=== PATIENT | male | born 1970 | race Caucasian/White ===

== ENCOUNTER 2017-02-05 00:22 | Inpatient (IN) | payer OTHER, MEDICAID ==
[~2017-02-05] VITALS: Ht 182.9 cm; Wt 78.0 kg
[2017-02-05] VITALS (21 sets, daily range): BP systolic 92–129; BP diastolic 44–71; PULSE 80–134; RESP 26; TEMP 97–100; O2SAT 82–100
[~2017-02-05 00:22] MED LIST: ARIP1TAB13 PO
[2017-02-05] MEDS ORDERED: ceFAZolin 2 GM PREMIX 50 ML ONE (00:27)
[2017-02-05] MEDS ORDERED: PROPOFOL 1000 MG/100 ML INJ 100 ML ONE (00:27)
[2017-02-05 00:43] LABS: AUTOMATED NEUTROPHIL # 4.6 TH/MM3 (1.8-7.7); BASOPHIL # 0.1 TH/MM3 (0-0.2); BASOPHIL % 0.7 % (0.0-2.0); EOSINOPHIL # 0.2 TH/MM3 (0-0.4); EOSINOPHIL % 1.7 % (0.0-4.0); HEMATOCRIT 42.1 % (39.0-51.0); LYMPH % 49.3 % (9.0-44.0); LYMPHOCYTE # 5.7 TH/MM3 (1.0-4.8); MEAN CELL VOLUME 103.1 FL (80.0-100.0); MEAN CORPUSCULAR HEMOGLOBIN 35.8 PG (27.0-34.0); MEAN CORPUSCULAR HGB CONC 34.8 % (32.0-36.0); MONO % 8.8 % (0.0-8.0); NEUT % 39.5 % (16.0-70.0); PLATELET COUNT 189 TH/MM3 (150-450); RED BLOOD COUNT 4.09 MIL/MM3 (4.50-5.90); RED CELL DISTRIBUTION WIDTH 14.8 % (11.6-17.2); WHITE BLOOD COUNT 11.6 TH/MM3 (4.0-11.0)
[2017-02-05 00:44] LABS: HEMO FLAGS AUTO DIFF
[2017-02-05] MEDS ORDERED: SODIUM CHLORIDE 0.9% FLUSH 5 ML FLUSH IVF PRN (00:45)
[2017-02-05] MEDS ORDERED: Post-op Orders (for Pharmacy) MISC XX ONE (00:45)
[2017-02-05] MEDS ORDERED: NALOXONE HCL 0.4 MG/ML AMP IV PRN (00:45)
[2017-02-05 00:47] LABS: I-STAT POTASSIUM 3.6 MMOL/L (3.5-4.9)
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
[2017-02-05 00:56] LABS: APTT (PATIENT) 26.9 SEC (24.3-30.1); INTERNATIONAL NORMALIZED RATIO 0.9 RATIO; PROTHROMBIN TIME - PATIENT 10.3 SEC (9.8-11.6)
[2017-02-05] MEDS ORDERED: 3% SALINE INJ 500 ML IV PRN (01:00)
[2017-02-05] MEDS ORDERED: IOHEXOL 350 MG/ML 10 ML VIAL (for RAD DIAG) IV ONE ×2 (01:07→12:09)
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
[2017-02-05 01:25] LABS: MYELOCYTES 2 % (0-0); POLYS (SEG NEUTROPHILS) 41 % (16-70); WBC DIFF SAMPLE 100
[2017-02-05 01:26] LABS: PLATELET ESTIMATE SMEAR NORMAL (NORMAL); PLATELET MORPHOLOGY NORMAL (NORMAL); SCAN/DIFF FINAL DIFF MANUAL
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
[2017-02-05 01:44] LABS: BLOOD GAS BASE EXCESS -8.5 mmol/L (-2-2); BLOOD GAS CARBOXYHEMOGLOBIN 6.3 % (0-4); BLOOD GAS HCO3 20 mmol/L (22-26); BLOOD GAS O2 HGB SATURATION 92 % (90-100); BLOOD GAS OXYGEN CONTENT 18.3 Vol % (12.0-20.0); BLOOD GAS PCO2 68 mmHg (38-42); BLOOD GAS PO2 240 mmHg (61-120); BLOOD GAS TOTAL HGB 13.9 G/DL (12.0-16.0); TEMP CORR TO 98.6
[2017-02-05 01:46] LABS: CRITICAL VALUE YES; OXYGEN DEVICE VENTILATOR
[2017-02-05 01:48] LABS: DRAW SITE RT RADIAL; FIO2 100 %; NUMBER OF ARTERIAL PUNCTURES 1; STAT NO; ULNAR PULSE PRESENT
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
[2017-02-05] MEDS ORDERED: SODIUM BICARBONATE 8.4% INJ 50 ML ONE (03:06)
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
[2017-02-05] MEDS ORDERED: SODIUM BICARBONATE 8.4% SOLN 50 MEQ/50 ML VIAL IVS ONE (03:20)
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
[2017-02-05] MEDS ORDERED: fentaNYL DRIP 250 ML IV SCH (04:30)
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
[2017-02-05] MEDS: fentaNYL 2,500 MCG/NS 250 ML IV SCH ×2 (04:58→13:58)
[2017-02-05] MEDS: SODIUM CHLOR 0.9% 1000 ML INJ 1,000 ML IV SCH ×3 (04:58→20:36)
[2017-02-05] MEDS: levETIRAcetam INJ 500 MG in SODIUM CHLORIDE 0.9% INJ 100 ML IV SCH ×2 (05:37→13:00)
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
[2017-02-05] MEDS ORDERED: ceFAZolin 2 GM PREMIX 50 ML IV SCH (06:00)
[2017-02-05 06:40] LABS: BLOOD GAS BASE EXCESS -6.5 mmol/L (-2-2); BLOOD GAS CARBOXYHEMOGLOBIN 1.2 % (0-4); BLOOD GAS HCO3 19 mmol/L (22-26); BLOOD GAS METHEMOGLOBIN 1.3 % (0-2); BLOOD GAS O2 HGB SATURATION 97 % (90-100); BLOOD GAS OXYGEN CONTENT 16.8 Vol % (12.0-20.0); BLOOD GAS PCO2 39 mmHg (38-42); BLOOD GAS PO2 238 mmHg (61-120); CRITICAL VALUE NO; OXYGEN DEVICE VENTILATOR; TEMP CORR TO 98.6; VENT SETTINGS PRVC26/550/1.0/+5
[2017-02-05 06:41] LABS: DRAW SITE ALINE; FIO2 85 %; STAT NO; ULNAR PULSE PRESENT
[2017-02-05] MEDS ORDERED: ETOMIDATE 40 MG/20 ML VIAL ONE (06:57)
[2017-02-05] MEDS ORDERED: SUCCINYLCHOLINE CHLORIDE 200 MG/10 ML VIAL ONE (06:59)
[2017-02-05] MEDS: ceFAZolin 2 GM PREMIX 50 ML IV SCH ×3 (07:54→23:45)
[2017-02-05] MEDS: PANTOPRAZOLE SODIUM 40 MG VIAL IV SCH (07:54)
[2017-02-05] MEDS: PROPOFOL 1000 MG/100 ML INJ 100 ML IV SCH ×4 (07:55→19:38)
[2017-02-05] MEDS: SODIUM CHLORIDE 0.9% FLUSH 5 ML FLUSH IVF SCH ×2 (07:55→20:36)
[2017-02-05] MEDS ORDERED: RISP2TAB2 PO (07:58)
[2017-02-05] MEDS ORDERED: SODIUM BICARBONATE 8.4% INJ 50 MEQ/50 ML SYR IV ONE (08:00)
[2017-02-05] MEDS ORDERED: SODIUM PHOSPHATE INJ 30 MMOL in SODIUM CHLOR 0.9% 250 ML INJ 240 ML IV PRN (08:15)
[2017-02-05] MEDS ORDERED: MAGNESIUM SULFATE INJ 2 GM in SODIUM CHLORIDE 0.9% INJ 96 ML IV PRN (08:15)
[2017-02-05] MEDS ORDERED: POTASSIUM PHOSPHATE MONOBASIC 500 MG TAB PO/TUBE PRN (08:15)
[2017-02-05] MEDS ORDERED: MAGNESIUM SULFATE INJ 4 GM in SODIUM CHLORIDE 0.9% INJ 92 ML IV PRN (08:15)
[2017-02-05] MEDS ORDERED: POTASSIUM CHLOR 20 MEQ PREMIX 100 ML IV PRN ×2 (08:15)
[2017-02-05] MEDS ORDERED: POTASSIUM PHOSPHATE MONOBASIC 500 MG TAB PO PRN (08:15)
[2017-02-05] MEDS ORDERED: MAGNESIUM OXIDE 400 MG TAB PO PRN (08:15)
[2017-02-05] MEDS: DOCUSATE SODIUM 50 MG/SENNA 8.6 MG TAB PO SCH ×2 (09:00→20:37)
[2017-02-05] MEDS: LACTULOSE SYRUP 20 GM/30 ML CUP PO SCH (09:00)
[2017-02-05] MEDS ORDERED: RESP: ALBUTEROL 2.5 MG/IPRATROPIUM 0.5 MG NEB (PRN) NEB (09:00)
[2017-02-05] MEDS ORDERED: NOREPINEPHRINE 4 MG/4 ML AMP ONE (10:07)
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
--- NOTE | 2017-02-05 10:28 | PD.PROCEDR ---
Procedure Note Procedure DX: Traumatic Brain Injury OP: Insertion Central Line (01210) Procedure: Right chest prepped and draped. Right subclavian vein cannulated and wire easily advanced. Catheter passed over wire to 18 cm. Lumens aspirated and flushed. Dressing applied. CXR ordered, will review. Burke Bright MD Feb 05, 2017 10:28
--- NOTE | 2017-02-05 10:44 | RADRPT ---
EXAM DATE/TIME: 02/05/2017 10:10 [facility] COMPARISON: CHEST SINGLE AP, February 05, 2017, 0:21. INDICATIONS : Post central line placement. MEDICAL HISTORY : Unobtainable SURGICAL HISTORY : Unobtainable ENCOUNTER: Subsequent ACUITY: 2 days PAIN SCORE: Non-responsive. LOCATION: Bilateral chest FINDINGS: ET tube and NG tube are well placed. There is a right subclavian line in place with the tip overlying the SVC. The heart size is normal. There is linear density seen at the medial left base. Some emphys ematous change management manager the right apex. A pneumothorax is not seen. CONCLUSION: 1. Right subclavian line in good position. 2. Focal emphysematous change management manager the right apex. A pneumothorax is not seen. 3. Linear atelectasis or consolidation at the medial left base. Chinmay Rodgers MD on February 05, 2017 at 10:41 Board Certified Radiologist. This report was verified electronically.
[2017-02-05] MEDS ORDERED: SODIUM CHLOR 0.9% 1000 ML INJ 1,000 ML IV ONE (11:45)
[2017-02-05] MEDS ORDERED: NOREPINEPHRINE INJ 4 MG in SODIUM CHLOR 0.9% 250 ML INJ 250 ML IV SCH (11:45)
[2017-02-05 12:30] LABS: CKMB 26.7 NG/ML (0.5-3.6)
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
--- NOTE | 2017-02-05 15:41 | EC ---
Study Study Date:02/05/2017 STUDY CONCLUSIONS SUMMARY - Left ventricle: The cavity size was normal. Wall thickness was normal. Systolic function was severely reduced. The estimated ejection fraction was in the range of 20% to 25%. Diffuse hypokinesis. - Pericardium, extracardiac: A trivial pericardial effusion was identified. If LV function is below 40, please consider prescribing an ACEI or ARB or document rationale for non-use. PROCEDURE DATA STUDY STATUS: Elective. Procedure: Transthoracic echocardiography. Image quality was good. Scanning was performed from the parasternal, apical, and subcostal acoustic windows. Study completion: The patient tolerated the procedure well. Transthoracic echocardiography. M-mode, complete 2D, complete spectral Doppler, and color Doppler. Patient status: Inpatient. CARDIAC ANATOMY LEFT VENTRICLE: The cavity size was normal. Wall thickness was normal. Systolic function was severely reduced. The estimated ejection fraction was in the range of 20% to 25%. Diffuse hypokinesis. AORTIC VALVE: Trileaflet; normal thickness leaflets. Doppler: Transvalvular velocity was within the normal range. There was no stenosis. No regurgitation. Peak gradient: 12mm Hg (S). AORTA: Aortic root: The aortic root was normal in size. MITRAL VALVE: Structurally normal valve. Doppler: Transvalvular velocity was within the normal range. There was no evidence for stenosis. No regurgitation. Peak gradient: 3mm Hg (D). LEFT ATRIUM: The atrium was normal in size. RIGHT VENTRICLE: The cavity size was normal. Wall thickness was normal. PULMONIC VALVE: Doppler: Transvalvular velocity was within the normal range. There was no evidence for stenosis. No regurgitation. TRICUSPID VALVE: Structurally normal valve. Doppler: Transvalvular velocity was within the normal range. Trace regurgitation. PULMONARY ARTERY: The main pulmonary artery was normal-sized. Systolic pressure was within the normal range. RIGHT ATRIUM: The atrium was normal in size. PERICARDIUM: A trivial pericardial effusion was identified. SYSTEMIC VEINS: Inferior vena cava: The vessel was normal in size. BASIC MEASUREMENTS ADULT Normal Left ventricle LV internal dimension, ED, chordal level, *52.9 mm 43-52 PLAX LV internal dimension, ES, chordal level, *47.2 mm 23-38 PLAX Fractional shortening, chordal level, PLAX *11 % >29 LV posterior wall thickness, ED 8.94 mm IVS/LVPW ratio, ED 1.22 <1.3 Ventricular septum Septal thickness, ED 10.9 mm Left atrium Anterior-posterior dimension 35 mm Right ventricle RV internal dimension, ED, PLAX *18.6 mm 19-38 DOPPLER MEASUREMENTS ADULT Normal Main pulmonary artery Pressure, S 21 mm Hg =30 Aortic valve Peak velocity, S 175 cm/s Peak gradient, S 12 mm Hg Mitral valve Peak E-wave velocity 86.2 cm/s Peak A-wave velocity 77.9 cm/s Peak gradient, D 3 mm Hg Peak E/A ratio 1.1 Tricuspid valve Regurgitant peak velocity 195 cm/s Peak RV-RA gradient, S 15 mm Hg Maximal regurgitant velocity 195 cm/s Systemic veins Estimated CVP 5 mm Hg Right ventricle RV pressure, S 21 mm Hg <30 LEGEND: Mean values are shown as u=mean value. Asterisk (*) alexis values outside specified normal range. Prepared and signed by Teja Stewart [id number]
--- NOTE | 2017-02-05 15:59 | RADRPT ---
EXAM DATE/TIME: 02/05/2017 15:31 CORRECTION Corrected on: February 05, 2017; [facility] COMPARISON: No previous studies available for comparison. INDICATIONS : Pain in lower left leg. MEDICAL HISTORY : None. SURGICAL HISTORY : None. ENCOUNTER: Initial ACUITY: 1 day PAIN SCORE: Non-responsive. LOCATION: Left lower leg FINDINGS: There is a comminuted and mildly impacted but otherwise essentially nondisplaced fracture of the fibu lar neck. There is an oblique versus spiral fracture in the distal shaft region of the fibula, minimally displa kelli CONCLUSION: Fractures both proximally and distally of the left fibula as above. Chinmay Marie MD on February 05, 2017 at 15:56 Board Certified Radiologist. This report was verified electronically. Chinmay Marie MD on February 05, 2017 at 16:01 Board Certified Radiologist. This report was verified electronically.
--- NOTE | 2017-02-05 16:04 | RADRPT ---
EXAM DATE/TIME: 02/05/2017 15:44 [facility] COMPARISON: No previous studies available for comparison. INDICATIONS : Pain in lower left leg. MEDICAL HISTORY : None. SURGICAL HISTORY : None. ENCOUNTER: Initial ACUITY: 1 day PAIN SCORE: Non-responsive. LOCATION: Left lower leg FINDINGS: Minimally displaced oblique fracture seen in the distal shaft region of the left fibula. It is best s een on the lateral view. There is lateral soft tissue swelling. Distal tibia appears intact. CONCLUSION: Minimally displaced oblique fracture of the distal fibula. Chinmay Marie MD on February 05, 2017 at 16:02 Board Certified Radiologist. This report was verified electronically.
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
--- NOTE | 2017-02-05 19:14 | EKG ---
Date Performed: 02/05/2017 Time Performed: 01:20:00 PTAGE: 89 years EKG: Sinus tachycardia. Left bundle branch block Borderline left axis deviation. There maybe ST elevation seen in leads v2,v3 and AVF. Because of heart rate, it is hard to determine if this is acut e injury pattern on top of a left bundle branch block. There maybe J-point elevation anteriorly, but with rate and left bundle branch block, this is difficult to determine if this is injury pattern or n ot. No prior tracing is available. Clinical correlation and follow up tracing is strongly recommend ed. Abnormal ECG NO PREVIOUS TRACING DOCTOR: Benton Dahl Interpretating Date/Time 02/05/2017 19:13:51
[2017-02-05 20:35] LABS: BICARBONATE 28.6 MEQ/L (21.0-32.0); MAGNESIUM 1.7 MG/DL (1.5-2.5); POTASSIUM 3.7 MEQ/L (3.5-5.1)
[2017-02-05] MEDS: CHLORHEXIDINE 0.12% (ORAL KIT) 15 ML CUP MT SCH (20:36)
[2017-02-05 21:09] LABS: CALCIUM-PROTEIN CORRECTED 7.8 MG/DL (8.5-10.1); CKMB 23.2 NG/ML (0.5-3.6)
[2017-02-05] MEDS: NOREPINEPHRINE INJ 4 MG in SODIUM CHLOR 0.9% 250 ML INJ 250 ML IV SCH (21:23)
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
[2017-02-06] VITALS (17 sets, daily range): BP systolic 108–136; BP diastolic 51–58; PULSE 87–114; RESP 26; TEMP 99.3–100.8; O2SAT 97–100
[2017-02-06] MEDS: levETIRAcetam INJ 500 MG in SODIUM CHLORIDE 0.9% INJ 100 ML IV SCH ×3 (01:28→23:47)
[2017-02-06] MEDS: PROPOFOL 1000 MG/100 ML INJ 100 ML IV SCH ×4 (01:33→23:48)
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
[2017-02-06 03:46] LABS: AMPHETAMINE, URINE NEG (NEG); BARBITURATES, URINE NEG (NEG); COCAINE, URINE NEG (NEG)
[2017-02-06 03:48] LABS: BACTERIA, URINE RARE /hpf; BLOOD, URINE MOD (NEG); GLUCOSE,URINE NEG (NEG); KETONE, URINE 40 mg/dL (NEG); MUCUS URINE MANY /lpf (OCC); NITRITE,URINE NEG (NEG); SQUAMOUS EPITHELIAL CELL URINE 1 /hpf (0-5); URINE COLOR YELLOW (YELLW/STRAW)
[2017-02-06 03:49] LABS: COMMENT (UR) CATH-CULTURE IND; CULTURE IF INDICATED CATH CULTURE IND
[2017-02-06] MEDS: NOREPINEPHRINE INJ 4 MG in SODIUM CHLOR 0.9% 250 ML INJ 250 ML IV SCH ×2 (04:18→16:14)
[2017-02-06 04:41] LABS: CKMB 16.6 NG/ML (0.5-3.6)
[2017-02-06] MEDS: fentaNYL 2,500 MCG/NS 250 ML IV SCH ×2 (05:08→22:38)
[2017-02-06 05:15] LABS: AUTOMATED NEUTROPHIL # 11.7 TH/MM3 (1.8-7.7); BASOPHIL % 0.3 % (0.0-2.0); EOSINOPHIL # 0.2 TH/MM3 (0-0.4); EOSINOPHIL % 1.3 % (0.0-4.0); HEMATOCRIT 30.3 % (39.0-51.0); HEMO FLAGS DIFF FINAL; LYMPHOCYTE # 0.5 TH/MM3 (1.0-4.8); MEAN CELL VOLUME 103.6 FL (80.0-100.0); MEAN CORPUSCULAR HEMOGLOBIN 35.8 PG (27.0-34.0); MEAN CORPUSCULAR HGB CONC 34.6 % (32.0-36.0); MONO % 6.5 % (0.0-8.0); NEUT % 87.9 % (16.0-70.0); PLATELET COUNT 106 TH/MM3 (150-450); RED BLOOD COUNT 2.92 MIL/MM3 (4.50-5.90); RED CELL DISTRIBUTION WIDTH 14.9 % (11.6-17.2); WHITE BLOOD COUNT 13.3 TH/MM3 (4.0-11.0)
[2017-02-06 05:41] LABS: BLOOD GAS BASE EXCESS 0.9 mmol/L (-2-2); BLOOD GAS CARBOXYHEMOGLOBIN 1.1 % (0-4); BLOOD GAS HCO3 26 mmol/L (22-26); BLOOD GAS METHEMOGLOBIN 1.1 % (0-2); BLOOD GAS O2 HGB SATURATION 94 % (90-100); BLOOD GAS OXYGEN CONTENT 13.9 Vol % (12.0-20.0); BLOOD GAS PCO2 48 mmHg (38-42); BLOOD GAS PO2 82 mmHg (61-120); BLOOD GAS TOTAL HGB 10.5 G/DL (12.0-16.0); CRITICAL VALUE NO; OXYGEN DEVICE VENTILATOR; TEMP CORR TO 98.6
[2017-02-06 05:42] LABS: DRAW SITE ALINE; FIO2 40 %; STAT NO
--- NOTE | 2017-02-06 05:59 | RADRPT ---
EXAM DATE/TIME: 02/06/2017 04:25 [facility] COMPARISON: CHEST SINGLE AP, February 05, 2017, 10:10. INDICATIONS : Shortness of breath. MEDICAL HISTORY : Smoker. SURGICAL HISTORY : None. ENCOUNTER: Subsequent ACUITY: 2 days PAIN SCORE: Non-responsive. LOCATION: Bilateral chest FINDINGS: Single AP view of the chest. Endotracheal tube tip is at the thoracic inlet. Right subclavian central venous catheter unchanged. Nasogastric tube remains in place with its side-port in the distal esopha rocky. Mild patchy opacity at the left lung base unchanged. The lungs are otherwise clear. Cardiomedias tinal silhouette within normal limits. No evidence of pleural effusion or pneumothorax. CONCLUSION: 1. No change in mild patchy left lung base opacity likely representing atelectasis. 2. Endotracheal tube tip is at the thoracic inlet and could be advanced several centimeters. 3. Nasogastric tube side port is in the distal esophagus and could be advanced 10 cm. Arnie Lozada MD on February 06, 2017 at 5:56 Board Certified Radiologist. This report was verified electronically.
[2017-02-06 06:02] LABS: INDIRECT BILIRUBIN 0.2 MG/DL (0.0-0.8); POTASSIUM 3.7 MEQ/L (3.5-5.1); TOTAL BILIRUBIN ADULT 0.3 MG/DL (0.2-1.0)
[2017-02-06] MEDS: CHLORHEXIDINE 0.12% (ORAL KIT) 15 ML CUP MT SCH ×2 (08:00→20:30)
[2017-02-06] MEDS: SODIUM CHLOR 0.9% 1000 ML INJ 1,000 ML IV SCH (08:03)
[2017-02-06] MEDS: SODIUM CHLORIDE 0.9% FLUSH 5 ML FLUSH IVF SCH ×2 (08:03→20:31)
[2017-02-06] MEDS: ceFAZolin 2 GM PREMIX 50 ML IV SCH ×3 (08:03→23:47)
[2017-02-06] MEDS: LACTULOSE SYRUP 20 GM/30 ML CUP PO SCH (08:03)
[2017-02-06] MEDS: PANTOPRAZOLE SODIUM 40 MG VIAL IV SCH (08:03)
[2017-02-06] MEDS: DOCUSATE SODIUM 50 MG/SENNA 8.6 MG TAB PO SCH ×2 (08:04→20:31)
[2017-02-06] MEDS: MULTIVITAMIN INJ 10 ML, THIAMINE INJ 100 MG, FOLIC ACID INJ 1 MG in SODIUM CHLORID 0.9%... IV SCH (09:00)
--- NOTE | 2017-02-06 09:46 | PD.CARD.PN ---
Subjective Subjective Remarks Remains intubated not responding to me Objective Medications Administered Medications Medications (Trade) Dose Ordered Sig/Familia Route PRN Reason Start Time Stop Time Status Last Admin Dose Admin Sodium Chloride (NS 1000 ml Inj) 1,000 ml @ 70 mls/hr [id number] IV 02/05/17 00:44 02/06/17 08:03 IV Flush (NS Flush) 2 ml BID IVF 02/05/17 09:00 02/06/17 08:03 Pantoprazole Sodium 40 mg 40 mg Q24H IV 02/05/17 09:00 02/06/17 08:03 Propofol 100 ml @ 0 mls/hr TITRATE IV 02/05/17 01:00 02/06/17 05:07 Levetriacetam 500 mg/Sodium Chloride 105 ml @ 420 mls/hr Q12H IV 02/05/17 01:00 02/06/17 01:28 Fentanyl Citrate 250 ml @ 0 mls/hr TITRATE IV 02/05/17 04:30 02/06/17 05:08 Cefazolin Sodium/ Dextrose (Ancef 2 Gm Premix) 50 ml @ 100 mls/hr Q8H IV 02/05/17 08:00 02/06/17 08:03 Senna/Docusate Sodium (Rae-Colace) 1 tab BID PO 02/05/17 09:00 02/05/17 20:37 Chlorhexidine Gluconate 15 ml 15 ml BID@08,20 MT 02/05/17 20:00 02/06/17 08:00 Norepinephrine Bitartrate/Sodium Chloride (Levophed Inj/NS 250 ml Inj) 254 ml @ 0 mls/hr TITRATE IV 02/05/17 21:30 02/06/17 04:18 Vital Signs / I&O Vital Signs Date Time Temp Pulse Resp B/P Pulse Ox O2 Delivery O2 Flow Rate FiO2 02/06/17 08:54 100 40 02/06/17 08:00 40 02/06/17 08:00 100.4 99 26 128/57 99 02/06/17 08:00 91 02/06/17 07:00 Mechanical Ventilator 50 02/06/17 06:00 99 02/06/17 04:00 100.0 100 26 136/52 97 02/06/17 04:00 100 02/06/17 04:00 40 02/06/17 03:34 100 50 02/06/17 02:00 90 02/06/17 00:00 99.9 94 26 129/51 100 02/06/17 00:00 94 02/06/17 00:00 50 02/05/17 22:00 86 02/05/17 20:00 100.0 90 26 129/56 100 02/05/17 20:00 94 02/05/17 20:00 50 02/05/17 19:00 Mechanical Ventilator 100 02/05/17 18:00 89 02/05/17 17:00 100 50 02/05/17 16:00 50 02/05/17 16:00 82 02/05/17 16:00 99.7 82 26 106/48 100 02/05/17 15:57 100 60 02/05/17 14:00 88 02/05/17 12:00 85 02/05/17 12:00 85 02/05/17 12:00 99.1 85 26 115/49 100 02/05/17 11:50 99 50 02/05/17 11:37 100 85 02/05/17 10:00 80 I/O 02/05/17 02/05/17 02/05/17 02/06/17 02/06/17 02/06/17 06:59 14:59 22:59 06:59 14:59 22:59 Intake Total 1247 ml 1975 ml 1506 ml 873 ml Output Total 1200 ml 1050 ml 1000 ml 450 ml Balance 47 ml 925 ml 506 ml 423 ml Intake IV Total 1247 ml 1975 ml 1506 ml 873 ml Output Urine Total 800 ml 850 ml 1000 ml 450 ml Gastric Drainage Total 400 ml 200 ml 0 ml # Bowel Movements 0 0 Physical Exam GENERAL: Intubated, sedated, multiple abrasions CARDIOVASCULAR: Regular rate and rhythm without murmurs, gallops, or rubs. RESPIRATORY: vent sounds appreciated GASTROINTESTINAL: Abdomen soft, non-tender, nondistended. Normal active bowel sounds MUSCULOSKELETAL: Extremities without clubbing, cyanosis, or edema. NEURO: intubated, sedated Laboratory Laboratory Tests Test 02/05/17 02/05/17 02/05/17 02/06/17 11:10 17:45 19:43 03:15 Total Creatine Kinase 3087 U/L 3687 U/L 3576 U/L Creatine Kinase MB 26.7 NG/ML 23.2 NG/ML 16.6 NG/ML Creatine Kinase MB % 0.9 % 0.6 % 0.5 % Troponin I 0.73 NG/ML 0.30 NG/ML 0.15 NG/ML Nasal Screen MRSA (PCR) NEGATIVE Sodium Level 149 MEQ/L Potassium Level 3.7 MEQ/L Chloride Level 113 MEQ/L Carbon Dioxide Level 28.6 MEQ/L Anion Gap 7 MEQ/L Blood Urea Nitrogen 9 MG/DL Creatinine 0.71 MG/DL Estimat Glomerular Filtration 119 ML/MIN Rate Random Glucose 108 MG/DL Calcium Level 6.7 MG/DL Protein Corrected Calcium 7.8 MG/DL Phosphorus Level 2.9 MG/DL Magnesium Level 1.7 MG/DL Total Protein 4.9 GM/DL Urine Color YELLOW Urine Turbidity HAZY Urine pH 5.0 Urine Specific [place] 1.017 Urine Protein TRACE mg/dL Urine Glucose (UA) NEG mg/dL Urine Ketones 40 mg/dL Urine Occult Blood MOD Urine Nitrite NEG Urine Bilirubin NEG Urine Urobilinogen LESS THAN 2.0 MG/DL Urine Leukocyte Esterase NEG Urine RBC 10 /hpf Urine WBC 9 /hpf Urine Squamous Epithelial 1 /hpf Cells Urine Amorphous Sediment RARE Urine Bacteria RARE /hpf Urine Mucus MANY /lpf Microscopic Urinalysis Comment CATH-CULTURE IND Urine Opiates Screen NEG Urine Barbiturates Screen NEG Urine Amphetamines Screen NEG Urine Benzodiazepines Screen NEG Urine Cocaine Screen NEG Urine Cannabinoids Screen NEG Test 02/06/17 02/06/17 05:00 05:32 White Blood Count 13.3 TH/MM3 Red Blood Count 2.92 MIL/MM3 Hemoglobin 10.5 GM/DL Hematocrit 30.3 % Mean Corpuscular Volume 103.6 FL Mean Corpuscular Hemoglobin 35.8 PG Mean Corpuscular Hemoglobin 34.6 % Concent Red Cell Distribution Width 14.9 % Platelet Count 106 TH/MM3 Mean Platelet Volume 7.9 FL Neutrophils (%) (Auto) 87.9 % Lymphocytes (%) (Auto) 4.0 % Monocytes (%) (Auto) 6.5 % Eosinophils (%) (Auto) 1.3 % Basophils (%) (Auto) 0.3 % Neutrophils # (Auto) 11.7 TH/MM3 Lymphocytes # (Auto) 0.5 TH/MM3 Monocytes # (Auto) 0.9 TH/MM3 Eosinophils # (Auto) 0.2 TH/MM3 Basophils # (Auto) 0.0 TH/MM3 CBC Comment DIFF FINAL Differential Comment Sodium Level 148 MEQ/L Potassium Level 3.7 MEQ/L Chloride Level 113 MEQ/L Carbon Dioxide Level 29.0 MEQ/L Anion Gap 6 MEQ/L Blood Urea Nitrogen 7 MG/DL Creatinine 0.67 MG/DL Estimat Glomerular Filtration 128 ML/MIN Rate Random Glucose 112 MG/DL Calcium Level 7.0 MG/DL Protein Corrected Calcium 8.0 MG/DL Total Bilirubin 0.3 MG/DL Direct Bilirubin 0.1 MG/DL Indirect Bilirubin 0.2 MG/DL Aspartate Amino Transf 136 U/L (AST/SGOT) Alanine Aminotransferase 102 U/L (ALT/SGPT) Alkaline Phosphatase 53 U/L Total Protein 5.2 GM/DL Albumin 2.5 GM/DL Blood Gas Puncture Site [facility] Blood Gas Patient Temperature 98.6 Blood Gas HCO3 26 mmol/L Blood Gas Base Excess 0.9 mmol/L Blood Gas Oxygen Saturation 94 % Arterial Blood pH 7.35 Arterial Blood Partial 48 mmHg Pressure CO2 Arterial Blood Partial 82 mmHg Pressure O2 Arterial Blood Oxygen Content 13.9 Vol % Arterial Blood 1.1 % Carboxyhemoglobin Arterial Blood Methemoglobin 1.1 % Blood Gas Hemoglobin 10.5 G/DL Oxygen Delivery Device VENTILATOR Blood Gas Ventilator Setting SEE COMMENT Blood Gas Inspired Oxygen 40 % Imaging Last Impressions Thoracic Spine CT 02/05/1725 Signed Impressions: Service Date/Time: Sunday, February 05, 2017 00:55 - CONCLUSION: Oblique nondisplaced fracture of the medial left 2nd rib at the costovertebral junction with mild adjacent soft tissue thickening. No vertebral body fractures or spondylolisthesis. The Danish Pollard MD Pelvis X-Ray 02/05/1725 Signed Impressions: Service Date/Time: Sunday, February 05, 2017 00:21 - CONCLUSION: The bony pelvic ring is grossly intact. Danish Pollard MD Maxillofacial CT 02/05/1725 Signed Impressions: Service Date/Time: Sunday, February 05, 2017 00:47 - CONCLUSION: 1. No facial bone fracture seen. 2. Left maxillary and bilateral posterior ethmoid sinus disease. Air-fluid level in the sphenoid sinus is nonspecific and could be due to intubation or sinus disease. Danish Pollard MD Lumbar Spine CT 02/05/1725 Signed Impressions: Service Date/Time: Sunday, February 05, 2017 00:55 - CONCLUSION: 1. Left paracentral disc protrusion at L5-S1 extending into the lateral recess. 2. Fractures of the left transverse processes of L2 and L5. 3. No vertebral body fractures and no evidence of spondylolisthesis. Danish Pollard MD Head CT 02/05/1725 Signed Impressions: Service Date/Time: Sunday, February 05, 2017 00:47 - CONCLUSION: 1. 2 cm left low convexity right occipital hematoma without significant mass effect. 2. Left mid frontal scalp laceration without evidence of skull fracture. Danish Pollard MD Chest X-Ray 02/05/1725 Signed Impressions: Service Date/Time: Sunday, February 05, 2017 00:21 - CONCLUSION: ET tube in good position. The lungs are symmetrically aerated. Danish Pollard MD Chest CT 02/05/1725 Signed Impressions: Service Date/Time: Sunday, February 05, 2017 00:55 - CONCLUSION: Dependent atelectasis throughout both lungs. No evidence of pneumothorax. Danish Pollard MD Cervical Spine CT 02/05/1725 Signed Impressions: Service Date/Time: Sunday, February 05, 2017 00:47 - CONCLUSION: Straightening of the upper cervical lordosis. No evidence of fracture or spondylolisthesis. Danish Pollard MD Abdomen/Pelvis CT 02/05/1725 Signed Impressions: Service Date/Time: Sunday, February 05, 2017 00:55 - CONCLUSION: 1. Findings suggest infarction of the upper pole the right kidney. No perinephric fluid and no definite laceration seen. 2. Fractures of the left transverse processes of L2 and L5. 3. Prominent gaseous distention of the stomach with gastric tube daily crossing the fundus. Recommend advancing the gastric tube several centimeters. 4. Probable left disc protrusion at L5-S1 extending into the lateral recess. Danish Pollard MD Assessment and Plan Problem List: (1) Troponin level elevated Assessment and Plan: Non specific, likely due to overall trauma (2) Cardiomyopathy Assessment and Plan: EF 20-25%, likely due to trauma/shock, though certainly CAD possible w/ LBBB; if clinical condition changes would treat medically and pursue ischemic workup, but not appropriate at time. Will not at this time add bb/henri/arb due to pressor use/hypotension, but could reconsider if clinical condition warrants. (3) LBBB (left bundle branch block) Assessment and Plan Unfortunately nothing to add at this point, though if critical/traumatic issues improve please let me know. Will sign off but please call with questions. Teja Stewart MD Feb 06, 2017 09:46
[2017-02-06] MEDS ORDERED: FUROSEMIDE 40 MG/4 ML VIAL IV PUSH ONE (10:30)
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
[2017-02-06 15:54] LABS: CKMB 7.8 NG/ML (0.5-3.6)
[2017-02-06 20:16] LABS: CKMB 5.5 NG/ML (0.5-3.6)
[2017-02-06] MEDS: ACETAMINOPHEN 650 MG/20.3 ML UDC PO PRN (20:29)
[2017-02-06] MEDS: risperiDONE 1 MG TAB PO SCH (20:54)
[2017-02-06] MEDS: BACITRACIN TOP OINT 15 GM TUBE TOP SCH (20:54)
[2017-02-06] MEDS: PIPERACIL-TAZO 4.5 GM PREMIX 100 ML IV SCH (22:36)
[2017-02-07] VITALS (19 sets, daily range): BP systolic 102–124; BP diastolic 52–62; PULSE 72–94; RESP 16–26; TEMP 97.9–99.9; O2SAT 96–100
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
[2017-02-07] MEDS: PIPERACIL-TAZO 4.5 GM PREMIX 100 ML IV SCH ×4 (03:54→20:52)
[2017-02-07 05:15] LABS: AUTOMATED NEUTROPHIL # 8.5 TH/MM3 (1.8-7.7); BASOPHIL % 0.1 % (0.0-2.0); EOSINOPHIL # 0.2 TH/MM3 (0-0.4); EOSINOPHIL % 1.9 % (0.0-4.0); LYMPH % 3.5 % (9.0-44.0); LYMPHOCYTE # 0.3 TH/MM3 (1.0-4.8); MEAN CELL VOLUME 103.8 FL (80.0-100.0); MEAN CORPUSCULAR HEMOGLOBIN 37.2 PG (27.0-34.0); MEAN CORPUSCULAR HGB CONC 35.9 % (32.0-36.0); MONO % 6.1 % (0.0-8.0); NEUT % 88.4 % (16.0-70.0); PLATELET COUNT 96 TH/MM3 (150-450); RED BLOOD COUNT 2.41 MIL/MM3 (4.50-5.90); RED CELL DISTRIBUTION WIDTH 14.4 % (11.6-17.2); WHITE BLOOD COUNT 9.6 TH/MM3 (4.0-11.0)
--- NOTE | 2017-02-07 05:15 | RADRPT ---
EXAM DATE/TIME: 02/07/2017 03:41 [facility] COMPARISON: CHEST SINGLE AP, February 06, 2017, 4:25. INDICATIONS : Short of breath. MEDICAL HISTORY : None. SURGICAL HISTORY : None. ENCOUNTER: Subsequent ACUITY: 3 days PAIN SCORE: Non-responsive. LOCATION: Bilateral chest FINDINGS: Single AP view of the chest. Endotracheal tube, nasogastric tube, right subclavian central venous cat heter remain in place. Endotracheal tube tip is now 7 cm above the tracy. Side port of the nasogastr ic tube is no longer seen and is likely below the [id number] of the radiograph. Mild patchy opacit y in the medial left lung base unchanged. CONCLUSION: No change in patchy left medial lung base atelectasis versus consolidation. Arnie Lozada MD on February 07, 2017 at 5:11 Board Certified Radiologist. This report was verified electronically.
[2017-02-07 05:24] LABS: HEMO FLAGS AUTO DIFF
--- NOTE | 2017-02-07 05:26 | RADRPT ---
EXAM DATE/TIME: 02/07/2017 04:36 [facility] COMPARISON: CT BRAIN W/O CONTRAST, February 05, 2017, 0:47. INDICATIONS : Follow up bleed. RADIATION DOSE: 69.16 CTDIvol (mGy) MEDICAL HISTORY : Non-responsive. SURGICAL HISTORY : Non-responsive. ENCOUNTER: Subsequent ACUITY: 2 days PAIN SCALE: Non-responsive LOCATION: cranial TECHNIQUE: Multiple contiguous axial images were obtained of the head. Using automated exposure control and adj ustment of the mA and/or kV according to patient size, radiation dose was kept as low as reasonably a chievable to obtain optimal diagnostic quality images. FINDINGS: CEREBRUM: Previously identified acute hemorrhage in the posterior left temporal region is no longer seen in thi s location. Just posterior to this there is hyperdensity in the sulci indicating subarachnoid hemorrh age of the left arrival lobe. Mild subarachnoid hemorrhage in the superior aspect of the right pariet al lobe also noted. Mild subarachnoid hemorrhage in the sylvian fissure on the right. Left frontal [place] bdural fluid is slightly more prominent than on the comparison study now measuring 6 mm in thickness. There is mild left to right midline shift measuring 3 mm. POSTERIOR FOSSA: The cerebellum and brainstem are intact. The 4th ventricle is midline. The cerebellopontine angle i s unremarkable. EXTRACRANIAL: Prominent ethmoid and maxillary sinus opacification bilaterally with air-fluid levels in the left max illary sinus and the ethmoid sinuses. SKULL: The calvaria is intact. No evidence of skull fracture. CONCLUSION: 1. Hemorrhage in the left parietal lobe has shifted into the sulci indicating subarachnoid hemorrhage . Mild subarachnoid hemorrhage also noted in the right parietal lobe sulci and sylvian fissure. 2. Increase in CSF density extra-axial fluid in the left frontal region with mild left to right midli ne shift. 3. Prominent maxillary and ethmoid sinus disease. Arnie Lozada MD on February 07, 2017 at 5:20 Board Certified Radiologist. This report was verified electronically.
[2017-02-07 05:41] LABS: ANION GAP 8 MEQ/L (5-15); AST (GOT) 93 U/L (15-37); BICARBONATE 30.1 MEQ/L (21.0-32.0); BLOOD UREA NITROGEN 7 MG/DL (7-18); CHLORIDE 109 MEQ/L (98-107); GLOMERULAR FILTRATION RATE 116 ML/MIN (>89); POTASSIUM 3.3 MEQ/L (3.5-5.1); SODIUM (NA) 147 MEQ/L (136-145)
[2017-02-07 05:56] LABS: ALKALINE PHOSPHATASE 52 U/L (45-117); ALT (GPT) 73 U/L (12-78); CREATINE KINASE 2087 U/L (39-308); TOTAL BILIRUBIN ADULT 0.5 MG/DL (0.2-1.0)
[2017-02-07] MEDS: NOREPINEPHRINE INJ 4 MG in SODIUM CHLOR 0.9% 250 ML INJ 250 ML IV SCH ×2 (05:59→21:28)
[2017-02-07] MEDS: POTASSIUM CHLOR 40 MEQ PREMIX 100 ML IV PRN (06:04)
[2017-02-07 06:08] LABS: BLOOD GAS BASE EXCESS 2.9 mmol/L (-2-2); BLOOD GAS CARBOXYHEMOGLOBIN 1.1 % (0-4); BLOOD GAS HCO3 27 mmol/L (22-26); BLOOD GAS O2 HGB SATURATION 93 % (90-100); BLOOD GAS OXYGEN CONTENT 17.4 Vol % (12.0-20.0); BLOOD GAS PCO2 44 mmHg (38-42); BLOOD GAS PO2 78 mmHg (61-120); BLOOD GAS TOTAL HGB 13.3 G/DL (12.0-16.0); CRITICAL VALUE NO; OXYGEN DEVICE VENTILATOR; TEMP CORR TO 98.6; VENT SETTINGS PRVC/AC
[2017-02-07 06:09] LABS: DRAW SITE ART LINE; FIO2 40 %; STAT NO
[2017-02-07 06:11] LABS: CKMB 3.6 NG/ML (0.5-3.6)
[2017-02-07 07:48] LABS: PLATELET ESTIMATE SMEAR LOW (NORMAL); PLATELET MORPHOLOGY NORMAL (NORMAL); SCAN/DIFF AUTO DIFF CONFIRMED
[2017-02-07] MEDS: ceFAZolin 2 GM PREMIX 50 ML IV SCH ×2 (08:59→15:19)
[2017-02-07] MEDS: CHLORHEXIDINE 0.12% (ORAL KIT) 15 ML CUP MT SCH ×2 (09:00→19:52)
[2017-02-07] MEDS: PANTOPRAZOLE SODIUM 40 MG VIAL IV SCH (09:00)
[2017-02-07] MEDS: LACTULOSE SYRUP 20 GM/30 ML CUP PO SCH (09:00)
[2017-02-07] MEDS: SODIUM CHLORIDE 0.9% FLUSH 5 ML FLUSH IVF SCH ×2 (09:01→19:51)
[2017-02-07] MEDS: ARIPiprazole 15 MG TAB PO SCH (09:01)
[2017-02-07] MEDS: MULTIVITAMIN INJ 10 ML, THIAMINE INJ 100 MG, FOLIC ACID INJ 1 MG in SODIUM CHLORID 0.9%... IV SCH (09:01)
[2017-02-07] MEDS: DOCUSATE SODIUM 50 MG/SENNA 8.6 MG TAB PO SCH ×2 (09:01→19:51)
[2017-02-07] MEDS: BACITRACIN TOP OINT 15 GM TUBE TOP SCH ×2 (09:02→19:51)
[2017-02-07] MEDS: ACETAMINOPHEN 650 MG/20.3 ML UDC PO PRN (09:03)
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
[2017-02-07 11:50] LABS: CKMB 2.4 NG/ML (0.5-3.6)
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
[2017-02-07] MEDS: fentaNYL 2,500 MCG/NS 250 ML IV SCH (13:31)
[2017-02-07] MEDS: levETIRAcetam INJ 500 MG in SODIUM CHLORIDE 0.9% INJ 100 ML IV SCH (15:18)
[2017-02-07] MEDS: PROPOFOL 1000 MG/100 ML INJ 100 ML IV SCH (15:19)
[2017-02-07] MEDS: risperiDONE 1 MG TAB PO SCH (19:51)
[2017-02-07] MEDS: SODIUM CHLOR 0.9% 1000 ML INJ 1,000 ML IV SCH (21:29)
[2017-02-08] VITALS (18 sets, daily range): BP systolic 110–136; BP diastolic 50–62; PULSE 61–79; RESP 16; TEMP 97.5–99.5; O2SAT 92–100
[2017-02-08] MEDS: ceFAZolin 2 GM PREMIX 50 ML IV SCH ×4 (01:06→23:36)
[2017-02-08] MEDS: levETIRAcetam INJ 500 MG in SODIUM CHLORIDE 0.9% INJ 100 ML IV SCH ×2 (01:06→11:56)
[2017-02-08] MEDS: PROPOFOL 1000 MG/100 ML INJ 100 ML IV SCH ×3 (01:06→23:47)
[2017-02-08] MEDS: PIPERACIL-TAZO 4.5 GM PREMIX 100 ML IV SCH ×4 (02:18→23:36)
[2017-02-08 04:47] LABS: AUTOMATED NEUTROPHIL # 6.4 TH/MM3 (1.8-7.7); BASOPHIL % 0.2 % (0.0-2.0); EOSINOPHIL # 0.2 TH/MM3 (0-0.4); EOSINOPHIL % 2.5 % (0.0-4.0); HEMATOCRIT 22.9 % (39.0-51.0); LYMPH % 3.5 % (9.0-44.0); LYMPHOCYTE # 0.3 TH/MM3 (1.0-4.8); MEAN CELL VOLUME 103.4 FL (80.0-100.0); MEAN CORPUSCULAR HEMOGLOBIN 36.6 PG (27.0-34.0); MEAN CORPUSCULAR HGB CONC 35.4 % (32.0-36.0); MONO % 9.1 % (0.0-8.0); NEUT % 84.7 % (16.0-70.0); PLATELET COUNT 90 TH/MM3 (150-450); RED BLOOD COUNT 2.21 MIL/MM3 (4.50-5.90); WHITE BLOOD COUNT 7.5 TH/MM3 (4.0-11.0)
[2017-02-08 04:54] LABS: HEMO FLAGS AUTO DIFF
--- NOTE | 2017-02-08 04:55 | RADRPT ---
EXAM DATE/TIME: 02/08/2017 03:45 [facility] COMPARISON: CHEST SINGLE AP, February 07, 2017, 3:41. INDICATIONS : Shortness of breath. MEDICAL HISTORY : None. SURGICAL HISTORY : None. ENCOUNTER: Initial ACUITY: 1 day PAIN SCORE: Non-responsive. LOCATION: Bilateral chest FINDINGS: Single AP view of the chest. Endotracheal tube, nasogastric tube, and right subclavian central venous catheter remain in place. Increased bilateral pulmonary opacity and pulmonary vasculature indistinct ness suggesting pulmonary edema. No evidence of pleural effusion or pneumothorax. CONCLUSION: Increased bilateral pulmonary opacity and pulmonary vasculature indistinctness indicating pulmonary e devora. Arnie Lozada MD on February 08, 2017 at 4:52 Board Certified Radiologist. This report was verified electronically.
[2017-02-08 05:37] LABS: ALKALINE PHOSPHATASE 57 U/L (45-117); ALT (GPT) 51 U/L (12-78); ANION GAP 7 MEQ/L (5-15); AST (GOT) 62 U/L (15-37); BICARBONATE 32.2 MEQ/L (21.0-32.0); BLOOD UREA NITROGEN 8 MG/DL (7-18); CALCIUM-PROTEIN CORRECTED 8.5 MG/DL (8.5-10.1); CHLORIDE 109 MEQ/L (98-107); CREATINE KINASE 1175 U/L (39-308); GLOMERULAR FILTRATION RATE 114 ML/MIN (>89); MAGNESIUM 2.3 MG/DL (1.5-2.5); POTASSIUM 3.4 MEQ/L (3.5-5.1); SODIUM (NA) 148 MEQ/L (136-145); TOTAL BILIRUBIN ADULT 0.4 MG/DL (0.2-1.0)
[2017-02-08 05:56] LABS: CKMB 1.6 NG/ML (0.5-3.6)
[2017-02-08 06:00] LABS: BLOOD GAS BASE EXCESS 4.5 mmol/L (-2-2); BLOOD GAS CARBOXYHEMOGLOBIN 1.4 % (0-4); BLOOD GAS HCO3 30 mmol/L (22-26); BLOOD GAS METHEMOGLOBIN 0.9 % (0-2); BLOOD GAS O2 HGB SATURATION 95 % (90-100); BLOOD GAS OXYGEN CONTENT 14.2 Vol % (12.0-20.0); BLOOD GAS PCO2 54 mmHg (38-42); BLOOD GAS PO2 92 mmHg (61-120); BLOOD GAS TOTAL HGB 10.5 G/DL (12.0-16.0); TEMP CORR TO 98.6
[2017-02-08 06:03] LABS: CRITICAL VALUE YES; FIO2 40 %; OXYGEN DEVICE VENTILATOR; VENT SETTINGS PRVC/AC
[2017-02-08 06:04] LABS: DRAW SITE ART LINE; STAT NO
[2017-02-08 07:23] LABS: BANDS 25 % (0-6); EOSINOPHILS 1 % (0-4); MYELOCYTES 1 % (0-0); NEUTROPHIL # MANUAL DIFF 6.5 TH/MM3 (1.8-7.7); POLYS (SEG NEUTROPHILS) 60 % (16-70); WBC DIFF SAMPLE 100
[2017-02-08 07:24] LABS: PLATELET ESTIMATE SMEAR LOW (NORMAL); PLATELET MORPHOLOGY NORMAL (NORMAL); SCAN/DIFF FINAL DIFF MANUAL
[2017-02-08] MEDS: CHLORHEXIDINE 0.12% (ORAL KIT) 15 ML CUP MT SCH ×2 (08:00→20:00)
[2017-02-08] MEDS: DOCUSATE SODIUM 50 MG/SENNA 8.6 MG TAB PO SCH ×2 (08:15→23:36)
[2017-02-08] MEDS: ARIPiprazole 15 MG TAB PO SCH (08:15)
[2017-02-08] MEDS: PANTOPRAZOLE SODIUM 40 MG VIAL IV SCH (08:15)
[2017-02-08] MEDS: LACTULOSE SYRUP 20 GM/30 ML CUP PO SCH (08:15)
[2017-02-08] MEDS: MULTIVITAMIN INJ 10 ML, THIAMINE INJ 100 MG, FOLIC ACID INJ 1 MG in SODIUM CHLORID 0.9%... IV SCH (08:15)
[2017-02-08] MEDS: BACITRACIN TOP OINT 15 GM TUBE TOP SCH ×2 (09:00→21:00)
[2017-02-08] MEDS: SODIUM CHLORIDE 0.9% FLUSH 5 ML FLUSH IVF SCH ×2 (09:00→21:00)
[2017-02-08] MEDS: SODIUM CHLOR 0.9% 1000 ML INJ 1,000 ML IV SCH ×2 (09:10→21:05)
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
[2017-02-08] MEDS: POTASSIUM CHLOR 40 MEQ PREMIX 100 ML IV PRN (10:52)
[2017-02-08] MEDS ORDERED: FUROSEMIDE 40 MG/4 ML VIAL IV PUSH ONE (11:45)
[2017-02-08] MEDS ORDERED: BISACODYL 10 MG SUPP RECTAL ONE (11:45)
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
[2017-02-08 13:39] LABS: CKMB 1.7 NG/ML (0.5-3.6)
[2017-02-08] MEDS: risperiDONE 1 MG TAB PO SCH (23:36)
[2017-02-08 23:58] LABS: CKMB 0.9 NG/ML (0.5-3.6)
[2017-02-09] VITALS (18 sets, daily range): BP systolic 115–146; BP diastolic 59–69; PULSE 60–99; RESP 16–28; TEMP 99.5–100.8; O2SAT 94–100
[2017-02-09] MEDS: levETIRAcetam INJ 500 MG in SODIUM CHLORIDE 0.9% INJ 100 ML IV SCH ×2 (02:16→13:33)
[2017-02-09] MEDS: fentaNYL 2,500 MCG/NS 250 ML IV SCH (03:25)
[2017-02-09] MEDS: PIPERACIL-TAZO 4.5 GM PREMIX 100 ML IV SCH ×4 (03:25→22:16)
[2017-02-09] MEDS: PROPOFOL 1000 MG/100 ML INJ 100 ML IV SCH (04:25)
[2017-02-09 05:12] LABS: CREATINE KINASE 770 U/L (39-308)
[2017-02-09 05:27] LABS: CKMB 0.8 NG/ML (0.5-3.6)
[2017-02-09] MEDS ORDERED: BISACODYL 10 MG SUPP RECTAL PRN (07:30)
[2017-02-09] MEDS ORDERED: BISACODYL 10 MG SUPP RECTAL ONE (07:30)
[2017-02-09] MEDS: CHLORHEXIDINE 0.12% (ORAL KIT) 15 ML CUP MT SCH ×2 (08:00→19:31)
[2017-02-09] MEDS: ceFAZolin 2 GM PREMIX 50 ML IV SCH ×3 (08:12→23:31)
[2017-02-09] MEDS: ARIPiprazole 15 MG TAB PO SCH (08:12)
[2017-02-09] MEDS: LACTULOSE SYRUP 20 GM/30 ML CUP PO SCH (08:12)
[2017-02-09] MEDS: DOCUSATE SODIUM 50 MG/SENNA 8.6 MG TAB PO SCH ×2 (08:13→22:15)
[2017-02-09] MEDS: PANTOPRAZOLE SODIUM 40 MG VIAL IV SCH (08:13)
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
[2017-02-09] MEDS: BACITRACIN TOP OINT 15 GM TUBE TOP SCH ×2 (09:00→22:16)
[2017-02-09] MEDS: SODIUM CHLORIDE 0.9% FLUSH 5 ML FLUSH IVF SCH ×2 (09:00→22:17)
[2017-02-09] MEDS: SODIUM CHLOR 0.9% 1000 ML INJ 1,000 ML IV SCH (09:00)
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
[2017-02-09] MEDS ORDERED: POTASSIUM CHLOR 40 MEQ PREMIX 100 ML IV ONE (12:30)
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
[2017-02-09] MEDS ORDERED: FUROSEMIDE 20 MG/2 ML VIAL IV PUSH ONE (12:45)
--- NOTE | 2017-02-09 13:19 | RADRPT ---
EXAM DATE/TIME: 02/09/2017 12:25 [facility] COMPARISON: CHEST SINGLE AP, February 08, 2017, 3:45. INDICATIONS : Pulmonary edema MEDICAL HISTORY : None. SURGICAL HISTORY : None. ENCOUNTER: Initial ACUITY: 3 days PAIN SCORE: Non-responsive. LOCATION: Bilateral chest FINDINGS: ET tube is well placed. There is an NG tube in place with the tip at the EG junction. This should be advanced. The heart size is normal. There is minimal increased density at the bases. The mid and uppe r lungs are clear. CONCLUSION: Suspected minimal consolidation or atelectasis at the bases. The previously seen edema has improved. The NG tube tip is at the EG junction and should be advanced. Chinmay Rodgers MD on February 09, 2017 at 13:17 Board Certified Radiologist. This report was verified electronically.
[2017-02-09] MEDS: METOCLOPRAMIDE HCL 10 MG/2 ML VIAL IV PUSH SCH ×2 (13:33→22:16)
[2017-02-09 13:56] LABS: CKMB 0.8 NG/ML (0.5-3.6)
[2017-02-09] MEDS ORDERED: LORazepam 2 MG/ML VIAL IV PRN (14:15)
[2017-02-09] MEDS: ACETAMINOPHEN 1000 MG/100 ML VIAL IV PRN ×2 (15:34→23:11)
[2017-02-09] MEDS: DEXMEDETOMIDINE INJ 50 ML IV SCH ×2 (19:31→23:13)
--- NOTE | 2017-02-09 20:41 | RADRPT ---
EXAM DATE/TIME: 02/09/2017 20:15 [facility] COMPARISON: No previous studies available for comparison. INDICATIONS : Dobbhoff placement MEDICAL HISTORY : None. SURGICAL HISTORY : None. ENCOUNTER: Initial ACUITY: 3 days PAIN SCORE: Non-responsive. LOCATION: Abdomen FINDINGS: There is a Dobbhoff feeding tube with tip at the gastric antrum/proximal duodenum. No free air seen. CONCLUSION: Dobbhoff feeding tube tip at the distal stomach/proximal duodenum. Chinmay Marie MD on February 09, 2017 at 20:39 Board Certified Radiologist. This report was verified electronically.
[2017-02-09] MEDS: risperiDONE 1 MG TAB PO SCH (22:15)
[2017-02-09] MEDS: PROPRANOLOL HCL 10 MG TAB PO SCH (22:17)
[2017-02-10] VITALS (16 sets, daily range): BP systolic 110–133; BP diastolic 55–82; PULSE 58–73; RESP 16–23; TEMP 100.2–101.5; O2SAT 93–100
[2017-02-10] MEDS: levETIRAcetam INJ 500 MG in SODIUM CHLORIDE 0.9% INJ 100 ML IV SCH ×2 (00:15→13:02)
[2017-02-10] MEDS: DEXMEDETOMIDINE INJ 50 ML IV SCH ×4 (02:14→07:35)
[2017-02-10] MEDS: PIPERACIL-TAZO 4.5 GM PREMIX 100 ML IV SCH ×4 (03:02→21:14)
[2017-02-10 03:30] LABS: AUTOMATED NEUTROPHIL # 6.7 TH/MM3 (1.8-7.7); BASOPHIL % 0.3 % (0.0-2.0); EOSINOPHIL % 0.5 % (0.0-4.0); HEMATOCRIT 22.7 % (39.0-51.0); HEMO FLAGS DIFF FINAL; LYMPH % 3.3 % (9.0-44.0); LYMPHOCYTE # 0.3 TH/MM3 (1.0-4.8); MEAN CELL VOLUME 101.7 FL (80.0-100.0); MEAN CORPUSCULAR HEMOGLOBIN 35.5 PG (27.0-34.0); MEAN CORPUSCULAR HGB CONC 34.8 % (32.0-36.0); MONO % 11.5 % (0.0-8.0); NEUT % 84.4 % (16.0-70.0); PLATELET COUNT 114 TH/MM3 (150-450); RED BLOOD COUNT 2.23 MIL/MM3 (4.50-5.90); RED CELL DISTRIBUTION WIDTH 13.8 % (11.6-17.2); WHITE BLOOD COUNT 7.9 TH/MM3 (4.0-11.0)
[2017-02-10 03:39] LABS: ALT (GPT) 41 U/L (12-78); ANION GAP 7 MEQ/L (5-15); AST (GOT) 67 U/L (15-37); BICARBONATE 34.7 MEQ/L (21.0-32.0); BLOOD UREA NITROGEN 9 MG/DL (7-18); CHLORIDE 103 MEQ/L (98-107); GLOMERULAR FILTRATION RATE 116 ML/MIN (>89); MAGNESIUM 2.2 MG/DL (1.5-2.5); SODIUM (NA) 145 MEQ/L (136-145)
[2017-02-10 03:41] LABS: ALKALINE PHOSPHATASE 72 U/L (45-117); TOTAL BILIRUBIN ADULT 0.7 MG/DL (0.2-1.0)
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
--- NOTE | 2017-02-10 05:03 | RADRPT ---
EXAM DATE/TIME: 02/10/2017 03:58 [facility] COMPARISON: CHEST SINGLE AP, February 09, 2017, 12:25. INDICATIONS : Shortness of breath. MEDICAL HISTORY : None. SURGICAL HISTORY : None. ENCOUNTER: Subsequent ACUITY: 4 - 6 days PAIN SCORE: Non-responsive. LOCATION: chest FINDINGS: Right central line in superior vena cava. Feeding tube enters stomach. Bilateral airspace consolidati on is increased since February 09. CONCLUSION: 1. Increasing consolidation in both lungs over the last day. Primary differential diagnosis is pneumonia or aspiration. Byron Lema MD on February 10, 2017 at 4:59 Board Certified Radiologist. This report was verified electronically.
[2017-02-10] MEDS: POTASSIUM PHOSPHATE INJ 30 MMOL in SODIUM CHLOR 0.9% 250 ML INJ 250 ML IV PRN (05:09)
[2017-02-10] MEDS: METOCLOPRAMIDE HCL 10 MG/2 ML VIAL IV PUSH SCH ×3 (05:18→21:14)
[2017-02-10] MEDS: PROPRANOLOL HCL 10 MG TAB PO SCH ×3 (05:18→21:14)
[2017-02-10 05:44] LABS: BLOOD GAS BASE EXCESS 8.7 mmol/L (-2-2); BLOOD GAS CARBOXYHEMOGLOBIN 1.3 % (0-4); BLOOD GAS HCO3 33 mmol/L (22-26); BLOOD GAS METHEMOGLOBIN 0.9 % (0-2); BLOOD GAS O2 HGB SATURATION 96 % (90-100); BLOOD GAS OXYGEN CONTENT 15.7 Vol % (12.0-20.0); BLOOD GAS PCO2 45 mmHg (38-42); BLOOD GAS PO2 94 mmHg (61-120); BLOOD GAS TOTAL HGB 11.6 G/DL (12.0-16.0); CRITICAL VALUE NO; DRAW SITE RT BRACHIAL; LITER FLOW 12 L/M; NUMBER OF ARTERIAL PUNCTURES 1; STAT NO; TEMP CORR TO 98.6
[2017-02-10] MEDS: ACETAMINOPHEN 1000 MG/100 ML VIAL IV PRN ×3 (06:48→23:53)
[2017-02-10] MEDS: ceFAZolin 2 GM PREMIX 50 ML IV SCH ×3 (07:01→23:53)
[2017-02-10] MEDS ORDERED: ETOMIDATE 40 MG/20 ML VIAL IV PUSH ONE (08:30)
[2017-02-10] MEDS ORDERED: ROCURONIUM INJ 100 MG/10 ML VIAL IV ONE (08:30)
[2017-02-10] MEDS ORDERED: GLYCERIN ADULT 2 GM SUPP RECTAL PRN (08:30)
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
[2017-02-10] MEDS: fentaNYL DRIP 250 ML IV SCH (08:43)
[2017-02-10] MEDS: PROPOFOL 1000 MG/100 ML INJ 100 ML IV SCH ×2 (08:44→13:02)
[2017-02-10] MEDS: PANTOPRAZOLE SODIUM 40 MG VIAL IV SCH (08:44)
[2017-02-10] MEDS: ARIPiprazole 15 MG TAB PO SCH (08:45)
[2017-02-10] MEDS: BACITRACIN TOP OINT 15 GM TUBE TOP SCH ×2 (08:45→21:13)
[2017-02-10] MEDS: DOCUSATE SODIUM 50 MG/SENNA 8.6 MG TAB PO SCH ×2 (08:45→21:13)
[2017-02-10] MEDS: BISACODYL 10 MG SUPP RECTAL SCH (08:45)
[2017-02-10] MEDS: SODIUM CHLORIDE 0.9% FLUSH 5 ML FLUSH IVF SCH ×2 (09:00→21:14)
--- NOTE | 2017-02-10 09:07 | PD.PROCEDR ---
Procedure Note Procedure DATE: 02/10/2017 PROCEDURE: Orotracheal intubation INDICATION: Aspiration/hypoxemic respiratory failure DETAILS OF PROCEDURE The patient was placed in optimal position and preoxygenated with 100% FiO2 via bag valve mask. At the start oxygen saturation was 100%. The patient was administered 50 mcg fentanyl IV and 20 mg etomidate IV and 50 mg rocuronium IV. I entered the oropharynx with a size 4 GVL GlideScope blade and obtained a grade 2 view of the airway. On single attempt a size 8.0 cuffed endotracheal tube was passed through the vocal cords. Correct tube location was confirmed with end tidal CO2 detector and by auscultating over bilateral lung woody. The endotracheal tube was secured with adhesive tape at a depth of 23 cm at the lips. The patient was connected to the ventilator. The patient tolerated the procedure well without any apparent complications. Oxygen saturations were maintained greater than 95% all times. STAT chest x-ray pending at time of dictation. Jose Barrios MD Feb 10, 2017 09:07
[2017-02-10] MEDS ORDERED: RESP: ALBUTEROL 2.5 MG/IPRATROPIUM 0.5 MG NEB (SCH) NEB (10:00)
[2017-02-10] MEDS ORDERED: METHYLNALTREXONE BROMIDE 12 MG/0.6 ML VIAL SQ ONE (10:00)
[2017-02-10] MEDS ORDERED: GLYCERIN ADULT 2 GM SUPP RECTAL ONE (10:00)
[2017-02-10] MEDS: LACTULOSE SYRUP 20 GM/30 ML CUP PO SCH ×3 (10:02→23:53)
[2017-02-10] MEDS: POLYETHYLENE GLYCOL 17 GM PKG PO SCH ×2 (10:03→21:13)
[2017-02-10 10:40] LABS: BLOOD GAS BASE EXCESS 7.5 mmol/L (-2-2); BLOOD GAS CARBOXYHEMOGLOBIN 1.3 % (0-4); BLOOD GAS HCO3 32 mmol/L (22-26); BLOOD GAS METHEMOGLOBIN 0.9 % (0-2); BLOOD GAS O2 HGB SATURATION 98 % (90-100); BLOOD GAS OXYGEN CONTENT 13.1 Vol % (12.0-20.0); BLOOD GAS PCO2 49 mmHg (38-42); BLOOD GAS PO2 305 mmHg (61-120); TEMP CORR TO 98.6
[2017-02-10 10:42] LABS: CRITICAL VALUE NO; DRAW SITE RT RADIAL; FIO2 100 %; NUMBER OF ARTERIAL PUNCTURES 2; OXYGEN DEVICE VENTILATOR; ULNAR PULSE PRESENT; VENT SETTINGS 16/550/5PEEP
[2017-02-10 10:43] LABS: STAT NO
--- NOTE | 2017-02-10 11:35 | RADRPT ---
EXAM DATE/TIME: 02/10/2017 10:27 [facility] COMPARISON: CHEST SINGLE AP, February 10, 2017, 3:58. INDICATIONS: Evaluate heart and lungs post intubation. MEDICAL HISTORY: None. Schizophrenia SURGICAL HISTORY: None. ENCOUNTER: Subsequent ACUITY: 3 days PAIN SCORE: Non-responsive. LOCATION: Chest FINDINGS: Patient is intubated with the tip of the ET tube 6 cm from the tracy. There is a NG tube or feeding tube with its tip directed into the stomach off the inferior aspect of the image. There is a right subclavian in place with tip overlying the SVC. The heart size is normal. There is patchy alveolar density seen throughout the lungs being most prominent in the perihilar regions. Significant effusio ns are not clearly seen. CONCLUSION: Diffuse pulmonary consolidations likely representing diffuse edema or diffuse infection. This is unc hanged from the prior exam. Chinmay Rodgers MD on February 10, 2017 at 11:24 Board Certified Radiologist. This report was verified electronically.
--- NOTE | 2017-02-10 11:50 | RADRPT ---
EXAM DATE/TIME: 02/10/2017 10:31 [facility] COMPARISON: No previous studies available for comparison. INDICATIONS : Ileus MEDICAL HISTORY : None. Schizophrenia SURGICAL HISTORY : None. ENCOUNTER: Subsequent ACUITY: 3 days PAIN SCORE: Non-responsive. LOCATION: Abdomen FINDINGS: Supine view of the abdomen was performed. The abdominal bowel gas pattern is normal. No abnormal ma sses, calcifications, or organomegaly is seen. There is a Dobbhoff tube with the tip overlying the p roximal duodenum. The osseous structures are unremarkable. There is a catheter in the bladder. CONCLUSION: No acute disease. Chinmay Rodgers MD on February 10, 2017 at 11:46 Board Certified Radiologist. This report was verified electronically.
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
[2017-02-10 14:02] LABS: CKMB 1.5 NG/ML (0.5-3.6)
[2017-02-10 15:09] LABS: BLOOD, URINE MOD (NEG); GLUCOSE,URINE NEG (NEG); GRANULAR CAST, URINE 5 /lpf; KETONE, URINE TRACE mg/dL (NEG); MUCUS URINE FEW /lpf (OCC); NITRITE,URINE NEG (NEG); URINE COLOR YELLOW (YELLW/STRAW)
[2017-02-10 15:11] LABS: COMMENT (UR) CATH-CULT NOT IND; CULTURE IF INDICATED CATH CULTURE NOT IND
[2017-02-10] MEDS: RESP: ALBUTEROL 2.5 MG/IPRATROPIUM 0.5 MG NEB (SCH) NEB ×2 (17:15→22:52)
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
[2017-02-10] MEDS: CHLORHEXIDINE 0.12% (ORAL KIT) 15 ML CUP MT SCH (21:02)
[2017-02-10] MEDS: MINERAL OIL LIQUID 30 ML CUP PO SCH (21:13)
[2017-02-10] MEDS: risperiDONE 1 MG TAB PO SCH (21:13)
[2017-02-10 22:48] LABS: CKMB 0.7 NG/ML (0.5-3.6)
[2017-02-11] VITALS (18 sets, daily range): BP systolic 102–112; BP diastolic 56–61; PULSE 54–70; RESP 16–20; TEMP 100–102; O2SAT 95–100
[2017-02-11] MEDS: levETIRAcetam INJ 500 MG in SODIUM CHLORIDE 0.9% INJ 100 ML IV SCH ×2 (00:10→12:23)
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
[2017-02-11 01:29] LABS: BLOOD, URINE TRACE (NEG); COMMENT (UR) CATH-CULT NOT IND; CULTURE IF INDICATED CATH CULTURE NOT IND; GLUCOSE,URINE NEG (NEG); KETONE, URINE TRACE mg/dL (NEG); MUCUS URINE FEW /lpf (OCC); NITRITE,URINE NEG (NEG); URINE COLOR YELLOW (YELLW/STRAW)
[2017-02-11 03:10] LABS: AUTOMATED NEUTROPHIL # 4.6 TH/MM3 (1.8-7.7); BASOPHIL # 0.1 TH/MM3 (0-0.2); BASOPHIL % 0.8 % (0.0-2.0); EOSINOPHIL # 0.2 TH/MM3 (0-0.4); EOSINOPHIL % 2.4 % (0.0-4.0); LYMPH % 13.6 % (9.0-44.0); LYMPHOCYTE # 0.9 TH/MM3 (1.0-4.8); MEAN CORPUSCULAR HEMOGLOBIN 36.1 PG (27.0-34.0); MEAN CORPUSCULAR HGB CONC 35.4 % (32.0-36.0); MONO % 13.6 % (0.0-8.0); NEUT % 69.6 % (16.0-70.0); PLATELET COUNT 144 TH/MM3 (150-450); RED BLOOD COUNT 2.01 MIL/MM3 (4.50-5.90); WHITE BLOOD COUNT 6.7 TH/MM3 (4.0-11.0)
[2017-02-11 03:22] LABS: ALKALINE PHOSPHATASE 61 U/L (45-117); ALT (GPT) 34 U/L (12-78); ANION GAP 7 MEQ/L (5-15); AST (GOT) 37 U/L (15-37); BICARBONATE 36.5 MEQ/L (21.0-32.0); BLOOD UREA NITROGEN 10 MG/DL (7-18); CHLORIDE 102 MEQ/L (98-107); CREATINE KINASE 636 U/L (39-308); CREATINE KINASE 639 U/L (39-308); GLOMERULAR FILTRATION RATE 109 ML/MIN (>89); MAGNESIUM 2.4 MG/DL (1.5-2.5); SODIUM (NA) 145 MEQ/L (136-145); TOTAL BILIRUBIN ADULT 0.3 MG/DL (0.2-1.0)
[2017-02-11 03:29] LABS: HEMO FLAGS AUTO DIFF
[2017-02-11 03:33] LABS: HEMATOCRIT 20.5 % (39.0-51.0)
[2017-02-11 03:34] LABS: CKMB LESS THAN 0.5 NG/ML (0.5-3.6)
[2017-02-11] MEDS: PIPERACIL-TAZO 4.5 GM PREMIX 100 ML IV SCH ×4 (03:44→21:47)
[2017-02-11 03:45] LABS: POTASSIUM 2.9 MEQ/L (3.5-5.1)
[2017-02-11 04:23] LABS: BANDS 14 % (0-6); EOSINOPHILS 1 % (0-4); METAMYELOCYTES 1 % (0-1); MYELOCYTES 1 % (0-0); NEUTROPHIL # MANUAL DIFF 5.3 TH/MM3 (1.8-7.7); POLYS (SEG NEUTROPHILS) 63 % (16-70); WBC DIFF SAMPLE 100
[2017-02-11 04:27] LABS: PLATELET ESTIMATE SMEAR LOW (NORMAL); PLATELET MORPHOLOGY NORMAL (NORMAL); SCAN/DIFF FINAL DIFF MANUAL
[2017-02-11] MEDS: RESP: ALBUTEROL 2.5 MG/IPRATROPIUM 0.5 MG NEB (SCH) NEB ×4 (04:30→19:52)
[2017-02-11 04:31] LABS: OVALOCYTES 1+ (NORMAL); STOMATOCYTES 1+ (NORMAL)
[2017-02-11] MEDS: POTASSIUM CHLOR 40 MEQ PREMIX 100 ML IV PRN ×3 (04:32→23:34)
[2017-02-11] MEDS: PROPRANOLOL HCL 10 MG TAB PO SCH ×3 (05:22→21:47)
[2017-02-11] MEDS: METOCLOPRAMIDE HCL 10 MG/2 ML VIAL IV PUSH SCH ×3 (05:22→21:47)
[2017-02-11] MEDS: LACTULOSE SYRUP 20 GM/30 ML CUP PO SCH ×4 (05:23→23:26)
[2017-02-11 05:28] LABS: BLOOD GAS BASE EXCESS 10.6 mmol/L (-2-2); BLOOD GAS CARBOXYHEMOGLOBIN 1.5 % (0-4); BLOOD GAS HCO3 35 mmol/L (22-26); BLOOD GAS METHEMOGLOBIN 0.9 % (0-2); BLOOD GAS O2 HGB SATURATION 93 % (90-100); BLOOD GAS OXYGEN CONTENT 11.8 Vol % (12.0-20.0); BLOOD GAS PCO2 54 mmHg (38-42); BLOOD GAS PO2 79 mmHg (61-120); BLOOD GAS TOTAL HGB 8.9 G/DL (12.0-16.0); TEMP CORR TO 98.6
[2017-02-11 05:29] LABS: CRITICAL VALUE YES; OXYGEN DEVICE VENTILATOR
[2017-02-11 05:30] LABS: DRAW SITE RT RADIAL; FIO2 40 %; NUMBER OF ARTERIAL PUNCTURES 1; STAT NO; ULNAR PULSE PRESENT; VENT SETTINGS AC16/550/5PEEP
--- NOTE | 2017-02-11 07:19 | RADRPT ---
EXAM DATE/TIME: 02/11/2017 04:10 [facility] COMPARISON: CHEST SINGLE AP, February 10, 2017, 10:27. INDICATIONS : Shortness of breath. MEDICAL HISTORY : None. SURGICAL HISTORY : None. ENCOUNTER: Subsequent ACUITY: 4 - 6 days PAIN SCORE: Non-responsive. LOCATION: Bilateral chest FINDINGS: A single view of the chest demonstrates right central line in superior vena cava, coiled back on itse lf and possibly into the azygos vein. Endotracheal tube tip near thoracic inlet. A feeding tube enter s stomach. Mild basilar and perihilar airspace disease improved from February 10. CONCLUSION: 1. Improving airspace disease from February 10. Support apparatus unchanged. Byron Lema MD on February 11, 2017 at 7:16 Board Certified Radiologist. This report was verified electronically.
[2017-02-11] MEDS: fentaNYL DRIP 250 ML IV SCH (07:49)
[2017-02-11] MEDS: ceFAZolin 2 GM PREMIX 50 ML IV SCH ×3 (07:49→23:26)
[2017-02-11] MEDS: PROPOFOL 1000 MG/100 ML INJ 100 ML IV SCH ×2 (07:50→18:08)
[2017-02-11] MEDS: CHLORHEXIDINE 0.12% (ORAL KIT) 15 ML CUP MT SCH ×2 (09:00→21:46)
[2017-02-11] MEDS: BACITRACIN TOP OINT 15 GM TUBE TOP SCH ×2 (09:00→21:47)
[2017-02-11] MEDS: POLYETHYLENE GLYCOL 17 GM PKG PO SCH ×2 (09:08→21:00)
[2017-02-11] MEDS: DOCUSATE SODIUM 50 MG/SENNA 8.6 MG TAB PO SCH ×2 (09:08→21:47)
[2017-02-11] MEDS: BISACODYL 10 MG SUPP RECTAL SCH (09:08)
[2017-02-11] MEDS: ARIPiprazole 15 MG TAB PO SCH (09:08)
[2017-02-11] MEDS: PANTOPRAZOLE SODIUM 40 MG VIAL IV SCH (09:09)
[2017-02-11] MEDS: SODIUM CHLORIDE 0.9% FLUSH 5 ML FLUSH IVF SCH ×2 (09:09→21:46)
[2017-02-11] MEDS: ARTIFICIAL TEARS OPTH SOLN 15 ML BTL EACH EYE SCH ×3 (09:15→21:47)
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
--- NOTE | 2017-02-11 11:41 | MG ---
cc: ALICIA LOZADA MD Lab No: [id number] Date: 02/10/2017 Age: 46 Sex: M Race: HISTORY: 46-year-old intubated, mental status changes on Diprivan and fentanyl. DESCRIPTION OF RECORD: Generalized delta activity with admixed theta 2-4 Hz 20-40 microvolts. No driving with photic stimulation. Single EKG showing sinus rhythm. INTERPRETATION: Moderate to severe encephalopathy. No epileptic activity. Clinical correlation. Alicia Lozada MD MG/JCRo /10:36 AM /11:37 AM
--- NOTE | 2017-02-11 14:04 | PD.PROCEDR ---
Procedure Note Procedure DX: Multiple Trauma OP: Insertion Left Subclavian Central Venous Line ([id number]) Procedure: Left chest prepped and draped. Left subclavian vein cannulated and wire easily advanced. Catheter passed over wire to 18 cm. Lumens aspirated and flushed. Dressing applied. CXR ordered, will review. Burke Bright MD Feb 11, 2017 14:04
[2017-02-11] MEDS: ACETAMINOPHEN 650 MG/20.3 ML UDC PO PRN (14:25)
--- NOTE | 2017-02-11 14:46 | RADRPT ---
EXAM DATE/TIME: 02/11/2017 14:20 [facility] COMPARISON: CHEST SINGLE AP, February 11, 2017, 4:10. INDICATIONS : Interval placement of new central venous line. Respiratory failure and intubation. MEDICAL HISTORY : Schizophrenia. SURGICAL HISTORY : None. ENCOUNTER: Initial ACUITY: 1 day PAIN SCORE: Non-responsive. LOCATION: Bilateral chest FINDINGS: A single AP supine portable view of the chest was obtained and demonstrates interval placement of a n ew left subclavian central venous line with the tip projected over the superior vena cava. There is n o visualized pneumothorax on this supine study. The right subclavian central venous line remains in p lace. An endotracheal tube is in place with the tip approximately 5 cm above the tracy. A feeding tu be is seen coursing through the esophagus and into the stomach. Hazy opacity remains in both lungs. T he heart size is within normal limits. CONCLUSION: 1. Interval placement of left subclavian central venous line with no pneumothorax. 2. The patient remains intubated and there is hazy opacity in both lungs. Allan Perez MD on February 11, 2017 at 14:43 Board Certified Radiologist. This report was verified electronically.
[2017-02-11 16:14] LABS: HEMATOCRIT 24.1 % (39.0-51.0); REVIEW FLAG FINAL
[2017-02-11 16:21] LABS: CREATINE KINASE 652 U/L (39-308)
[2017-02-11 16:34] LABS: CKMB LESS THAN 0.5 NG/ML (0.5-3.6)
[2017-02-11 17:56] LABS: POTASSIUM 3.2 MEQ/L (3.5-5.1)
[2017-02-11] MEDS: MINERAL OIL LIQUID 30 ML CUP PO SCH (21:00)
[2017-02-11 22:53] LABS: CREATINE KINASE 576 U/L (39-308)
[2017-02-11 23:11] LABS: CKMB LESS THAN 0.5 NG/ML (0.5-3.6)
[2017-02-11] MEDS: risperiDONE 1 MG TAB PO SCH (23:26)
[2017-02-12] VITALS (19 sets, daily range): BP systolic 124–159; BP diastolic 63–84; PULSE 52–94; RESP 20–26; TEMP 100–101.3; O2SAT 93–100
[2017-02-12] MEDS: levETIRAcetam INJ 500 MG in SODIUM CHLORIDE 0.9% INJ 100 ML IV SCH ×2 (01:38→13:15)
[2017-02-12] MEDS: PIPERACIL-TAZO 4.5 GM PREMIX 100 ML IV SCH ×4 (03:05→21:41)
[2017-02-12] MEDS: RESP: ALBUTEROL 2.5 MG/IPRATROPIUM 0.5 MG NEB (SCH) NEB ×4 (04:03→21:10)
[2017-02-12] MEDS: ARTIFICIAL TEARS OPTH SOLN 15 ML BTL EACH EYE SCH ×3 (05:15→21:42)
[2017-02-12] MEDS: PROPRANOLOL HCL 10 MG TAB PO SCH ×3 (05:16→21:42)
[2017-02-12] MEDS: LACTULOSE SYRUP 20 GM/30 ML CUP PO SCH (05:16)
[2017-02-12] MEDS: METOCLOPRAMIDE HCL 10 MG/2 ML VIAL IV PUSH SCH ×3 (05:16→21:42)
--- NOTE | 2017-02-12 06:27 | RADRPT ---
EXAM DATE/TIME: 02/12/2017 04:38 [facility] COMPARISON: CHEST SINGLE AP, February 11, 2017, 14:20. INDICATIONS : Shortness of breath. MEDICAL HISTORY : None. SURGICAL HISTORY : None. ENCOUNTER: Subsequent ACUITY: 1 week PAIN SCORE: Non-responsive. LOCATION: Bilateral chest FINDINGS: Endotracheal tube tip in satisfactory position. Feeding tube enters stomach. Left central line in sup erior vena cava. Bilateral mostly basilar airspace disease present. Cardiomegaly. No pneumothorax. CONCLUSION: 1. Basilar airspace consolidation similar to February 11. Small effusions. Support apparatus in satisfac tory position. Byron Lema MD on February 12, 2017 at 6:24 Board Certified Radiologist. This report was verified electronically.
[2017-02-12 06:41] LABS: AUTOMATED NEUTROPHIL # 7.7 TH/MM3 (1.8-7.7); BASOPHIL % 0.4 % (0.0-2.0); EOSINOPHIL # 0.2 TH/MM3 (0-0.4); EOSINOPHIL % 2.1 % (0.0-4.0); HEMATOCRIT 24.6 % (39.0-51.0); HEMO FLAGS DIFF FINAL; LYMPH % 7.9 % (9.0-44.0); LYMPHOCYTE # 0.8 TH/MM3 (1.0-4.8); MEAN CELL VOLUME 100.5 FL (80.0-100.0); MEAN CORPUSCULAR HEMOGLOBIN 34.5 PG (27.0-34.0); MEAN CORPUSCULAR HGB CONC 34.4 % (32.0-36.0); MONO % 11.9 % (0.0-8.0); NEUT % 77.7 % (16.0-70.0); PLATELET COUNT 170 TH/MM3 (150-450); RED BLOOD COUNT 2.45 MIL/MM3 (4.50-5.90); RED CELL DISTRIBUTION WIDTH 16.3 % (11.6-17.2); WHITE BLOOD COUNT 9.9 TH/MM3 (4.0-11.0)
[2017-02-12 07:05] LABS: ALT (GPT) 29 U/L (12-78); ANION GAP 8 MEQ/L (5-15); AST (GOT) 33 U/L (15-37); BICARBONATE 31.4 MEQ/L (21.0-32.0); BLOOD UREA NITROGEN 11 MG/DL (7-18); CHLORIDE 103 MEQ/L (98-107); GLOMERULAR FILTRATION RATE 116 ML/MIN (>89); MAGNESIUM 2.5 MG/DL (1.5-2.5); POTASSIUM 3.8 MEQ/L (3.5-5.1); SODIUM (NA) 142 MEQ/L (136-145)
[2017-02-12 07:07] LABS: ALKALINE PHOSPHATASE 68 U/L (45-117); CREATINE KINASE 468 U/L (39-308); TOTAL BILIRUBIN ADULT 0.4 MG/DL (0.2-1.0)
[2017-02-12 07:20] LABS: CKMB LESS THAN 0.5 NG/ML (0.5-3.6)
[2017-02-12] MEDS: ceFAZolin 2 GM PREMIX 50 ML IV SCH ×3 (07:32→23:35)
[2017-02-12] MEDS: CHLORHEXIDINE 0.12% (ORAL KIT) 15 ML CUP MT SCH (08:00)
[2017-02-12] MEDS: DOCUSATE SODIUM 50 MG/SENNA 8.6 MG TAB PO SCH ×2 (08:26→20:50)
[2017-02-12] MEDS: BISACODYL 10 MG SUPP RECTAL SCH (08:26)
[2017-02-12] MEDS: POLYETHYLENE GLYCOL 17 GM PKG PO SCH ×2 (08:26→20:50)
[2017-02-12] MEDS: BACITRACIN TOP OINT 15 GM TUBE TOP SCH ×2 (08:26→20:51)
[2017-02-12] MEDS: PANTOPRAZOLE SODIUM 40 MG VIAL IV SCH (09:11)
[2017-02-12] MEDS: ARIPiprazole 15 MG TAB PO SCH (09:11)
[2017-02-12] MEDS: SODIUM CHLORIDE 0.9% FLUSH 5 ML FLUSH IVF SCH ×2 (09:11→20:51)
[2017-02-12] MEDS: POTASSIUM PHOSPHATE INJ 30 MMOL in SODIUM CHLOR 0.9% 250 ML INJ 250 ML IV PRN (09:12)
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
[2017-02-12] MEDS ORDERED: GLUCAGON 1 MG/ML VIAL OTHER PRN (12:45)
[2017-02-12] MEDS ORDERED: DEXTROSE 50% IN WATER 50 ML VIAL(D50) IV PUSH PRN (12:45)
[2017-02-12 13:00] LABS: CREATINE KINASE 441 U/L (39-308)
[2017-02-12 13:13] LABS: CKMB LESS THAN 0.5 NG/ML (0.5-3.6)
[2017-02-12] MEDS ORDERED: POTASSIUM PHOSPHATE INJ 15 MMOL in SODIUM CHLORIDE 0.9% INJ 150 ML IV ONE (14:00)
[2017-02-12] MEDS: ACETAMINOPHEN 650 MG/20.3 ML UDC PO PRN (17:41)
[2017-02-12] MEDS: INSULIN NovoLIN REGULAR SUPPLEMENTAL SCALE SQ SCH ×2 (17:54→23:35)
[2017-02-12] MEDS: DEXMEDETOMIDINE INJ 50 ML IV SCH ×4 (17:55→22:52)
[2017-02-12] MEDS: MINERAL OIL LIQUID 30 ML CUP PO SCH (20:49)
[2017-02-12] MEDS: risperiDONE 1 MG TAB PO SCH (20:51)
[2017-02-12 21:22] LABS: CREATINE KINASE 483 U/L (39-308)
[2017-02-12 21:35] LABS: CKMB LESS THAN 0.5 NG/ML (0.5-3.6)
[2017-02-12] MEDS: ACETAMINOPHEN 1000 MG/100 ML VIAL IV PRN (22:52)
[2017-02-13] VITALS (14 sets, daily range): BP systolic 121–155; BP diastolic 62–78; PULSE 61–89; RESP 22–30; TEMP 98.5–101.5; O2SAT 96–99
[2017-02-13] MEDS: levETIRAcetam INJ 500 MG in SODIUM CHLORIDE 0.9% INJ 100 ML IV SCH ×2 (00:18→12:02)
[2017-02-13] MEDS: DEXMEDETOMIDINE INJ 50 ML IV SCH ×3 (00:18→05:42)
[2017-02-13] MEDS: PIPERACIL-TAZO 4.5 GM PREMIX 100 ML IV SCH ×4 (03:05→21:23)
[2017-02-13 03:28] LABS: AUTOMATED NEUTROPHIL # 9.9 TH/MM3 (1.8-7.7); BASOPHIL % 0.4 % (0.0-2.0); EOSINOPHIL % 0.6 % (0.0-4.0); HEMO FLAGS DIFF FINAL; LYMPH % 10.1 % (9.0-44.0); MEAN CELL VOLUME 99.8 FL (80.0-100.0); MONO % 7.4 % (0.0-8.0); NEUT % 81.5 % (16.0-70.0); PLATELET COUNT 178 TH/MM3 (150-450); RED BLOOD COUNT 2.41 MIL/MM3 (4.50-5.90); RED CELL DISTRIBUTION WIDTH 15.8 % (11.6-17.2); WHITE BLOOD COUNT 12.2 TH/MM3 (4.0-11.0)
[2017-02-13 03:29] LABS: BASOPHIL # 0.1 TH/MM3 (0-0.2); EOSINOPHIL # 0.1 TH/MM3 (0-0.4); LYMPHOCYTE # 1.2 TH/MM3 (1.0-4.8)
[2017-02-13] MEDS: RESP: ALBUTEROL 2.5 MG/IPRATROPIUM 0.5 MG NEB (SCH) NEB ×4 (03:40→20:04)
[2017-02-13 03:47] LABS: ALT (GPT) 41 U/L (12-78); ANION GAP 6 MEQ/L (5-15); AST (GOT) 38 U/L (15-37); BICARBONATE 31.4 MEQ/L (21.0-32.0); BLOOD UREA NITROGEN 14 MG/DL (7-18); CHLORIDE 104 MEQ/L (98-107); GLOMERULAR FILTRATION RATE 110 ML/MIN (>89); MAGNESIUM 2.6 MG/DL (1.5-2.5); POTASSIUM 4.1 MEQ/L (3.5-5.1); SODIUM (NA) 141 MEQ/L (136-145)
[2017-02-13 03:49] LABS: ALKALINE PHOSPHATASE 64 U/L (45-117); CREATINE KINASE 380 U/L (39-308); TOTAL BILIRUBIN ADULT 0.4 MG/DL (0.2-1.0)
[2017-02-13 04:01] LABS: CKMB LESS THAN 0.5 NG/ML (0.5-3.6)
[2017-02-13] MEDS: ACETAMINOPHEN 650 MG/20.3 ML UDC PO PRN ×2 (04:25→12:03)
[2017-02-13] MEDS: ARTIFICIAL TEARS OPTH SOLN 15 ML BTL EACH EYE SCH ×3 (05:07→21:23)
[2017-02-13] MEDS: PROPRANOLOL HCL 10 MG TAB PO SCH ×4 (05:08→21:24)
[2017-02-13] MEDS: METOCLOPRAMIDE HCL 10 MG/2 ML VIAL IV PUSH SCH ×3 (05:08→21:23)
--- NOTE | 2017-02-13 05:14 | RADRPT ---
EXAM DATE/TIME: 02/13/2017 04:03 [facility] COMPARISON: CHEST SINGLE AP, February 12, 2017, 4:38. INDICATIONS : Shortness of breath. MEDICAL HISTORY : None. SURGICAL HISTORY : None. ENCOUNTER: Subsequent ACUITY: 1 week PAIN SCORE: Non-responsive. LOCATION: Bilateral chest FINDINGS: There is bilateral alveolar and interstitial infiltrate increased since the previous study. Cardiomeg jada. Left subclavian line and feeding tube are noted. CONCLUSION: Worsening bilateral infiltrates. Saeid Simpson MD on February 13, 2017 at 5:12 Board Certified Radiologist. This report was verified electronically.
[2017-02-13] MEDS ORDERED: DEXMEDETOMIDINE INJ 1,000 MCG in SODIUM CHLOR 0.9% 250 ML INJ 240 ML IV SCH (05:45)
[2017-02-13] MEDS: INSULIN NovoLIN REGULAR SUPPLEMENTAL SCALE SQ SCH ×3 (06:17→17:46)
[2017-02-13 06:27] LABS: BLOOD GAS BASE EXCESS 4.4 mmol/L (-2-2); BLOOD GAS CARBOXYHEMOGLOBIN 1.4 % (0-4); BLOOD GAS HCO3 28 mmol/L (22-26); BLOOD GAS METHEMOGLOBIN 0.9 % (0-2); BLOOD GAS O2 HGB SATURATION 93 % (90-100); BLOOD GAS OXYGEN CONTENT 14.5 Vol % (12.0-20.0); BLOOD GAS PCO2 37 mmHg (38-42); BLOOD GAS PO2 71 mmHg (61-120); BLOOD GAS TOTAL HGB 11.1 G/DL (12.0-16.0); CRITICAL VALUE NO; LITER FLOW 4 L/M; OXYGEN DEVICE NASAL CANNULA; TEMP CORR TO 98.6
[2017-02-13 06:28] LABS: DRAW SITE RT RADIAL; NUMBER OF ARTERIAL PUNCTURES 1; STAT NO; ULNAR PULSE PRESENT
[2017-02-13] MEDS: ceFAZolin 2 GM PREMIX 50 ML IV SCH (07:00)
[2017-02-13] MEDS: DOCUSATE SODIUM 50 MG/SENNA 8.6 MG TAB PO SCH ×2 (08:21→21:00)
[2017-02-13] MEDS: ARIPiprazole 15 MG TAB PO SCH (08:21)
[2017-02-13] MEDS: PANTOPRAZOLE SODIUM 40 MG VIAL IV SCH (08:21)
[2017-02-13] MEDS: POLYETHYLENE GLYCOL 17 GM PKG PO SCH ×2 (08:21→21:00)
[2017-02-13] MEDS: SODIUM CHLORIDE 0.9% FLUSH 5 ML FLUSH IVF SCH ×2 (08:21→21:21)
[2017-02-13] MEDS: BACITRACIN TOP OINT 15 GM TUBE TOP SCH ×2 (08:22→21:22)
[2017-02-13] MEDS ORDERED: FUROSEMIDE 40 MG/4 ML VIAL IV PUSH ONE (10:45)
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
[2017-02-13] MEDS ORDERED: Vancomycin Consult Pharmacy 1 EA OTHER SCH (12:00)
[2017-02-13] MEDS: VALPROIC ACID SYRUP 250 MG/5 ML UDC PO SCH ×2 (12:01→21:21)
[2017-02-13] MEDS: VANCOMYCIN INJ 1,250 MG in SODIUM CHLOR 0.9% 250 ML INJ 250 ML IV SCH ×2 (13:01→22:00)
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
[2017-02-13] MEDS: MINERAL OIL LIQUID 30 ML CUP PO SCH (21:00)
[2017-02-13] MEDS: risperiDONE 1 MG TAB PO SCH (21:21)
[2017-02-13] MEDS: ACETAMINOPHEN 1000 MG/100 ML VIAL IV PRN (21:27)
[2017-02-14] VITALS (12 sets, daily range): BP systolic 142–152; BP diastolic 68–83; PULSE 79–101; RESP 18–32; TEMP 98.4–101.3; O2SAT 94–100
[2017-02-14] MEDS: INSULIN NovoLIN REGULAR SUPPLEMENTAL SCALE SQ SCH ×5 (00:30→23:13)
[2017-02-14] MEDS: levETIRAcetam INJ 500 MG in SODIUM CHLORIDE 0.9% INJ 100 ML IV SCH (00:30)
[2017-02-14] MEDS: RESP: ALBUTEROL 2.5 MG/IPRATROPIUM 0.5 MG NEB (SCH) NEB ×4 (02:59→20:38)
[2017-02-14] MEDS: PIPERACIL-TAZO 4.5 GM PREMIX 100 ML IV SCH ×2 (03:19→09:27)
[2017-02-14 04:13] LABS: AUTOMATED NEUTROPHIL # 11.9 TH/MM3 (1.8-7.7); BASOPHIL # 0.1 TH/MM3 (0-0.2); BASOPHIL % 0.5 % (0.0-2.0); EOSINOPHIL # 0.2 TH/MM3 (0-0.4); EOSINOPHIL % 1.2 % (0.0-4.0); HEMATOCRIT 24.7 % (39.0-51.0); HEMO FLAGS DIFF FINAL; LYMPH % 9.8 % (9.0-44.0); LYMPHOCYTE # 1.4 TH/MM3 (1.0-4.8); MEAN CELL VOLUME 98.4 FL (80.0-100.0); MEAN CORPUSCULAR HEMOGLOBIN 33.9 PG (27.0-34.0); MEAN CORPUSCULAR HGB CONC 34.5 % (32.0-36.0); MONO % 6.8 % (0.0-8.0); NEUT % 81.7 % (16.0-70.0); PLATELET COUNT 227 TH/MM3 (150-450); RED BLOOD COUNT 2.51 MIL/MM3 (4.50-5.90); RED CELL DISTRIBUTION WIDTH 15.2 % (11.6-17.2); WHITE BLOOD COUNT 14.5 TH/MM3 (4.0-11.0)
[2017-02-14 04:45] LABS: ANION GAP 7 MEQ/L (5-15); AST (GOT) 55 U/L (15-37); BICARBONATE 28.6 MEQ/L (21.0-32.0); BLOOD UREA NITROGEN 12 MG/DL (7-18); CHLORIDE 102 MEQ/L (98-107); GLOMERULAR FILTRATION RATE 135 ML/MIN (>89); MAGNESIUM 2.3 MG/DL (1.5-2.5); POTASSIUM 3.7 MEQ/L (3.5-5.1); SODIUM (NA) 138 MEQ/L (136-145)
[2017-02-14 04:48] LABS: ALKALINE PHOSPHATASE 69 U/L (45-117); ALT (GPT) 53 U/L (12-78); CREATINE KINASE 339 U/L (39-308); TOTAL BILIRUBIN ADULT 0.5 MG/DL (0.2-1.0)
[2017-02-14 05:08] LABS: CKMB LESS THAN 0.5 NG/ML (0.5-3.6)
--- NOTE | 2017-02-14 05:47 | RADRPT ---
EXAM DATE/TIME: 02/14/2017 03:54 [facility] COMPARISON: CHEST SINGLE AP, February 13, 2017, 4:03. INDICATIONS : Shortness of breath. MEDICAL HISTORY : None. SURGICAL HISTORY : None. ENCOUNTER: Subsequent ACUITY: 1 week PAIN SCORE: Non-responsive. LOCATION: Bilateral chest FINDINGS: Left subclavian line and feeding tube again seen. Cardiomegaly and patchy pulmonary consolidation unc hanged.No significant change has occurred. CONCLUSION: No significant change has occurred. Saeid Simpson MD on February 14, 2017 at 5:46 Board Certified Radiologist. This report was verified electronically.
[2017-02-14] MEDS: METOCLOPRAMIDE HCL 10 MG/2 ML VIAL IV PUSH SCH (06:00)
--- NOTE | 2017-02-14 06:14 | RADRPT ---
EXAM DATE/TIME: 02/14/2017 05:47 [facility] COMPARISON: CT BRAIN W/O CONTRAST, February 10, 2017, 4:32. INDICATIONS : Follow up hemorrhage. RADIATION DOSE: 69.15 CTDIvol (mGy) MEDICAL HISTORY : None SURGICAL HISTORY : Craniotomy. ENCOUNTER: Initial ACUITY: 4 - 6 days PAIN SCALE: Non-responsive LOCATION: cranial TECHNIQUE: Multiple contiguous axial images were obtained of the head. Using automated exposure control and adj ustment of the mA and/or kV according to patient size, radiation dose was kept as low as reasonably a chievable to obtain optimal diagnostic quality images. FINDINGS: There are bilateral subdural hygromas left greater than right unchanged. There is subarachnoid hemorr kb along the left parietal convexity, the right subarachnoid hemorrhage is not clearly seen on curr ent study. There is left mastoid opacification. No obvious fractures. Left frontal skin george. CONCLUSION: Decreased conspicuity of subarachnoid hemorrhage. Stable bilateral subdural collections. Saeid Simpson MD on February 14, 2017 at 6:12 Board Certified Radiologist. This report was verified electronically.
[2017-02-14] MEDS: PROPRANOLOL HCL 10 MG TAB PO SCH (06:25)
[2017-02-14] MEDS: VANCOMYCIN INJ 1,250 MG in SODIUM CHLOR 0.9% 250 ML INJ 250 ML IV SCH ×2 (06:26→14:00)
[2017-02-14] MEDS: ARTIFICIAL TEARS OPTH SOLN 15 ML BTL EACH EYE SCH ×3 (06:27→22:06)
[2017-02-14] MEDS: SODIUM CHLORIDE 0.9% FLUSH 5 ML FLUSH IVF SCH ×2 (09:00→22:06)
[2017-02-14] MEDS: DOCUSATE SODIUM 50 MG/SENNA 8.6 MG TAB PO SCH ×2 (09:00→21:00)
[2017-02-14] MEDS: POLYETHYLENE GLYCOL 17 GM PKG PO SCH ×2 (09:00→21:00)
[2017-02-14] MEDS: BACITRACIN TOP OINT 15 GM TUBE TOP SCH ×2 (09:00→22:08)
[2017-02-14] MEDS: VALPROIC ACID SYRUP 250 MG/5 ML UDC PO SCH ×2 (09:26→23:10)
[2017-02-14] MEDS: PANTOPRAZOLE SODIUM 40 MG VIAL IV SCH (09:27)
[2017-02-14] MEDS: ARIPiprazole 15 MG TAB PO SCH (09:27)
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
[2017-02-14] MEDS ORDERED: FUROSEMIDE 40 MG/4 ML VIAL IV PUSH ONE (10:30)
[2017-02-14] MEDS: ACETAMINOPHEN 1000 MG/100 ML VIAL IV PRN (10:33)
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
[2017-02-14] MEDS: ENOXAPARIN SODIUM 30 MG/0.3 ML SYRINGE SQ SCH ×2 (12:44→23:18)
[2017-02-14] MEDS ORDERED: PHARMACY ORDERED LAB XX ONE (13:45)
[2017-02-14] MEDS ORDERED: PROPRANOLOL HCL 10 MG TAB PO SCH (14:00)
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
[2017-02-14] MEDS: PROPRANOLOL HCL 20 MG TAB PO SCH ×2 (15:38→22:06)
[2017-02-14 19:50] LABS: CREATINE KINASE 266 U/L (39-308)
[2017-02-14] MEDS: ACETAMINOPHEN 650 MG/20.3 ML UDC PO PRN (22:04)
[2017-02-14] MEDS: FAMOTIDINE 20 MG TAB PO SCH (22:05)
[2017-02-14] MEDS: levETIRAcetam 500 MG/5 ML UDC TUBE SCH (22:05)
[2017-02-14] MEDS: risperiDONE 1 MG TAB PO SCH (22:05)
[2017-02-14 22:25] LABS: HEMOGLOBIN A1a 0.7 %; HEMOGLOBIN A1b 0.8 %; HEMOGLOBIN Ao 83.4 %; HEMOGLOBIN LA1C 2.7 %; HEMOGLOBIN P3 4.5 %
[2017-02-14] MEDS: VANCOMYCIN INJ 1,500 MG in SODIUM CHLORID 0.9% 500 ML INJ 500 ML IV SCH (23:11)
[2017-02-15] VITALS (16 sets, daily range): BP systolic 125–179; BP diastolic 78–94; PULSE 78–110; RESP 19–24; TEMP 98.2–100.8; O2SAT 93–100
[2017-02-15] MEDS: ACETAMINOPHEN 650 MG/20.3 ML UDC PO PRN ×2 (04:15→16:00)
[2017-02-15] MEDS: PROPRANOLOL HCL 20 MG TAB PO SCH ×3 (04:15→21:58)
[2017-02-15] MEDS: VANCOMYCIN INJ 1,500 MG in SODIUM CHLORID 0.9% 500 ML INJ 500 ML IV SCH ×3 (04:16→21:58)
[2017-02-15] MEDS: ARTIFICIAL TEARS OPTH SOLN 15 ML BTL EACH EYE SCH ×3 (04:17→22:05)
[2017-02-15] MEDS: RESP: ALBUTEROL 2.5 MG/IPRATROPIUM 0.5 MG NEB (SCH) NEB ×4 (05:23→21:08)
[2017-02-15 05:29] LABS: AUTOMATED NEUTROPHIL # 11.3 TH/MM3 (1.8-7.7); BASOPHIL # 0.1 TH/MM3 (0-0.2); BASOPHIL % 0.4 % (0.0-2.0); EOSINOPHIL # 0.2 TH/MM3 (0-0.4); EOSINOPHIL % 1.6 % (0.0-4.0); HEMATOCRIT 28.2 % (39.0-51.0); HEMO FLAGS DIFF FINAL; LYMPH % 9.7 % (9.0-44.0); LYMPHOCYTE # 1.4 TH/MM3 (1.0-4.8); MEAN CELL VOLUME 97.7 FL (80.0-100.0); MEAN CORPUSCULAR HEMOGLOBIN 33.7 PG (27.0-34.0); MEAN CORPUSCULAR HGB CONC 34.4 % (32.0-36.0); MONO % 7.8 % (0.0-8.0); NEUT % 80.5 % (16.0-70.0); PLATELET COUNT 281 TH/MM3 (150-450); RED BLOOD COUNT 2.89 MIL/MM3 (4.50-5.90); RED CELL DISTRIBUTION WIDTH 15.3 % (11.6-17.2)
[2017-02-15 05:58] LABS: ANION GAP 11 MEQ/L (5-15); AST (GOT) 42 U/L (15-37); BICARBONATE 26.3 MEQ/L (21.0-32.0); BLOOD UREA NITROGEN 12 MG/DL (7-18); CHLORIDE 95 MEQ/L (98-107); GLOMERULAR FILTRATION RATE 126 ML/MIN (>89); MAGNESIUM 2.3 MG/DL (1.5-2.5); POTASSIUM 3.6 MEQ/L (3.5-5.1); SODIUM (NA) 132 MEQ/L (136-145)
[2017-02-15 06:01] LABS: ALKALINE PHOSPHATASE 78 U/L (45-117); ALT (GPT) 65 U/L (12-78); CREATINE KINASE 212 U/L (39-308); TOTAL BILIRUBIN ADULT 0.5 MG/DL (0.2-1.0)
[2017-02-15] MEDS: INSULIN NovoLIN REGULAR SUPPLEMENTAL SCALE SQ SCH ×3 (06:33→17:39)
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
[2017-02-15] MEDS: levETIRAcetam 500 MG/5 ML UDC TUBE SCH ×2 (08:54→21:56)
[2017-02-15] MEDS: SODIUM CHLORIDE 0.9% FLUSH 5 ML FLUSH IVF SCH ×2 (08:54→21:57)
[2017-02-15] MEDS: ARIPiprazole 15 MG TAB PO SCH (08:54)
[2017-02-15] MEDS: FAMOTIDINE 20 MG TAB PO SCH ×2 (08:54→21:56)
[2017-02-15] MEDS: DOCUSATE SODIUM 50 MG/SENNA 8.6 MG TAB PO SCH ×2 (08:54→21:57)
[2017-02-15] MEDS: POLYETHYLENE GLYCOL 17 GM PKG PO SCH ×2 (08:54→21:00)
[2017-02-15] MEDS: BACITRACIN TOP OINT 15 GM TUBE TOP SCH ×2 (08:57→22:04)
[2017-02-15] MEDS: VALPROIC ACID SYRUP 250 MG/5 ML UDC PO SCH ×2 (09:00→21:56)
[2017-02-15] MEDS: FUROSEMIDE 40 MG/5 ML UNIT DOSE CUP TUBE SCH (09:00)
[2017-02-15] MEDS: FREE WATER G-TUBE SCH ×3 (09:15→21:57)
[2017-02-15] MEDS: ENOXAPARIN SODIUM 30 MG/0.3 ML SYRINGE SQ SCH (12:20)
[2017-02-15] MEDS: metFORMIN HCL 500 MG TAB PO SCH ×2 (12:20→17:39)
--- NOTE | 2017-02-15 13:03 | HHI.PR ---
Subjective Subjective Notes Febrile overnight Lethargic but arousable to voice Objective Vitals/I&O Vital Signs Date Time Temp Pulse Resp B/P Pulse Ox O2 Delivery O2 Flow Rate FiO2 02/15/17 12:37 84 02/15/17 12:00 100.2 24 179/94 97 02/15/17 08:48 Nasal Cannula 2.00 02/12/17 12:54 35 Labs Laboratory Tests Test 02/14/17 02/14/17 02/15/17 02/15/17 13:50 18:51 05:00 11:45 Vancomycin Level Trough 11.4 Hemoglobin A1c 6.0 Total Creatine Kinase 266 212 180 White Blood Count 14.0 Red Blood Count 2.89 Hemoglobin 9.7 Hematocrit 28.2 Mean Corpuscular Volume 97.7 Mean Corpuscular Hemoglobin 33.7 Mean Corpuscular Hemoglobin 34.4 Concent Red Cell Distribution Width 15.3 Platelet Count 281 Mean Platelet Volume 9.1 Neutrophils (%) (Auto) 80.5 Lymphocytes (%) (Auto) 9.7 Monocytes (%) (Auto) 7.8 Eosinophils (%) (Auto) 1.6 Basophils (%) (Auto) 0.4 Neutrophils # (Auto) 11.3 Lymphocytes # (Auto) 1.4 Monocytes # (Auto) 1.1 Eosinophils # (Auto) 0.2 Basophils # (Auto) 0.1 CBC Comment DIFF FINAL Differential Comment Sodium Level 132 Potassium Level 3.6 Chloride Level 95 Carbon Dioxide Level 26.3 Anion Gap 11 Blood Urea Nitrogen 12 Creatinine 0.68 Estimat Glomerular Filtration 126 Rate Random Glucose 221 Calcium Level 8.4 Phosphorus Level 2.8 Magnesium Level 2.3 Total Bilirubin 0.5 Aspartate Amino Transf 42 (AST/SGOT) Alanine Aminotransferase 65 (ALT/SGPT) Alkaline Phosphatase 78 Total Protein 6.8 Albumin 2.5 Date/Time Procedure Status Source Growth 02/10/17 14:30 Gram Stain - Final Complete Sputum Expectorated Sputum 02/10/17 14:30 Sputum Culture - Final Complete Sputum Expectorated Sputum LIGHT GROWTH NORMAL RESPIRATORY [place] 02/10/17 12:53 Aerobic Blood Culture - Final Complete Blood Peripheral NO GROWTH IN 5 DAYS 02/10/17 12:53 Anaerobic Blood Culture - Final Complete Blood Peripheral QNS - SEE AEROBE REPORT Radiology Last Impressions Chest X-Ray 02/15/17 0600 Signed Impressions: Service Date/Time: Wednesday, February 15, 2017 06:40 - CONCLUSION: Slight interval improved aeration of the lungs with mild residual perihilar infiltrates noted. Delonte Long MD Head CT 02/14/17 0600 Signed Impressions: Service Date/Time: Tuesday, February 14, 2017 05:47 - CONCLUSION: Decreased conspicuity of subarachnoid hemorrhage. Stable bilateral subdural collections. Saeid Simpson MD Abdomen X-Ray 02/10/17 0000 Signed Impressions: Service Date/Time: Friday, February 10, 2017 10:31 - CONCLUSION: No acute disease. Chinmay Rodgers MD Hand X-Ray 02/06/17 0000 Signed Impressions: Service Date/Time: Monday, February 06, 2017 12:50 - CONCLUSION: Foreign body involving the dorsal soft tissues with dorsal soft tissue swelling. Danish Sims Jr., MD Thoracic Spine CT 02/05/1725 Signed Impressions: Service Date/Time: Sunday, February 05, 2017 00:55 - CONCLUSION: Oblique nondisplaced fracture of the medial left 2nd rib at the costovertebral junction with mild adjacent soft tissue thickening. No vertebral body fractures or spondylolisthesis. The Danish Pollard MD Pelvis X-Ray 02/05/1725 Signed Impressions: Service Date/Time: Sunday, February 05, 2017 00:21 - CONCLUSION: The bony pelvic ring is grossly intact. Danish Pollard MD Maxillofacial CT 02/05/1725 Signed Impressions: Service Date/Time: Sunday, February 05, 2017 00:47 - CONCLUSION: 1. No facial bone fracture seen. 2. Left maxillary and bilateral posterior ethmoid sinus disease. Air-fluid level in the sphenoid sinus is nonspecific and could be due to intubation or sinus disease. Danish Pollard MD Lumbar Spine CT 02/05/1725 Signed Impressions: Service Date/Time: Sunday, February 05, 2017 00:55 - CONCLUSION: 1. Left paracentral disc protrusion at L5-S1 extending into the lateral recess. 2. Fractures of the left transverse processes of L2 and L5. 3. No vertebral body fractures and no evidence of spondylolisthesis. Danihs Pollard MD Chest CT 02/05/1725 Signed Impressions: Service Date/Time: Sunday, February 05, 2017 00:55 - CONCLUSION: Dependent atelectasis throughout both lungs. No evidence of pneumothorax. Danish Pollard MD Cervical Spine CT 02/05/1725 Signed Impressions: Service Date/Time: Sunday, February 05, 2017 00:47 - CONCLUSION: Straightening of the upper cervical lordosis. No evidence of fracture or spondylolisthesis. Danish Pollard MD Abdomen/Pelvis CT 02/05/1725 Signed Impressions: Service Date/Time: Sunday, February 05, 2017 00:55 - CONCLUSION: 1. Findings suggest infarction of the upper pole the right kidney. No perinephric fluid and no definite laceration seen. 2. Fractures of the left transverse processes of L2 and L5. 3. Prominent gaseous distention of the stomach with gastric tube daily crossing the fundus. Recommend advancing the gastric tube several centimeters. 4. Probable left disc protrusion at L5-S1 extending into the lateral recess. Danish Pollard MD Tibia/Fibula X-Ray 02/05/17 Signed Impressions: Service Date/Time: Sunday, February 05, 2017 15:31 - CONCLUSION: Fractures both proximally and distally of the left fibula as above. Chinmay Marie MD Neck CTA 02/05/17 Signed Impressions: Service Date/Time: Sunday, February 05, 2017 12:00 - CONCLUSION: Normal examination. Chinmay Rodgers MD Head CTA 02/05/17 Signed Impressions: Service Date/Time: Sunday, February 05, 2017 12:00 - CONCLUSION: Normal examination. Chinmay Rodgers MD Ankle X-Ray 02/05/17 Signed Impressions: Service Date/Time: Sunday, February 05, 2017 15:44 - CONCLUSION: Minimally displaced oblique fracture of the distal fibula. Chinmay Marie MD Narrative Exam GENERAL: 46 year old well-nourished, well developed male lying in bed. SKIN: Warm and dry. HEAD: Normocephalic. ENT: No nasal bleeding or discharge. Mucous membranes pink and moist. NECK: Trachea midline. No JVD. CARDIOVASCULAR: Regular rate and rhythm. RESPIRATORY: No accessory muscle use. Lungs clear and diminished to auscultation. Breath sounds equal bilaterally. GASTROINTESTINAL: Abdomen soft, non-tender, nondistended. + BS. MUSCULOSKELETAL: Extremities without cyanosis, generalized edema noted. No obvious deformities. NEUROLOGICAL: Lethargic and not verbalizing during visit A/P Assessment and Plan INJURIES: LEFT SDH LEFT parietal contusion RIGHT occipital hematoma with extra-axial blood at the craniocervical junction LEFT frontal scalp lac (george) RIGHT kidney infarction L2 and L5 transverse process fx LEFT rib fx at costovertebral junction (# 2) Aspiration LEFT distal fibula fx (non-op) PMHx: Schizophrenia 02/08: self extubated 02/10: Re-intubated 02/12: Extubated Diet: Dobhoff Vital @ 70 - 200 q 8 free water flushes. Failing daily swallow evaluations. Patient may need PEG placement. Pulm: Nebs, nasal trumpet- suction PRN. Pain: Ativan, Tylenol. Valproic acid. (Seroquel) Activity: OOB. PT/OT evaluating. GI: Pepcid Bowel: Miralax, Mineral oil. LBM 02/15- Diarrhea - R/O C diff. DVT: SCDs. Lovenox. Febrile overnight. DC Central line and Mitchell catheter. R/O C-diff ST to perform cognitive evaluation. Neuropsychologist following. Cardiomyopathy. Echo reveals EF 20-25%. 20mg Lasix daily. Keppra for seizure prophylaxis. Hemoglobin A1c is 6.0. Medium dose SSI is not maintaining blood sugar less than 200. Added Metformin for tighter glucose control. Continue to monitor. ABX: Ancef Case management consulted for discharge planning. No family at bedside during visit to provide update. Mook Kurtz Feb 15, 2017 13:03
[2017-02-15 20:20] LABS: C. DIFF EPI 027 PRESUMPTIVE NEGATIVE (NEGATIVE); C. DIFF TOXIN PCR NEGATIVE (NEGATIVE)
[2017-02-15] MEDS: risperiDONE 1 MG TAB PO SCH (21:57)
[2017-02-16] VITALS (9 sets, daily range): BP systolic 106–132; BP diastolic 66–80; PULSE 88–108; RESP 18–24; TEMP 96.7–100.6; O2SAT 92–100
[2017-02-16] MEDS: ENOXAPARIN SODIUM 30 MG/0.3 ML SYRINGE SQ SCH ×3 (00:57→23:33)
[2017-02-16] MEDS: RESP: ALBUTEROL 2.5 MG/IPRATROPIUM 0.5 MG NEB (SCH) NEB ×4 (04:22→20:04)
[2017-02-16] MEDS ORDERED: PHARMACY ORDERED LAB XX ONE (05:45)
[2017-02-16] MEDS: VANCOMYCIN INJ 1,500 MG in SODIUM CHLORID 0.9% 500 ML INJ 500 ML IV SCH ×3 (05:57→23:34)
[2017-02-16] MEDS: PROPRANOLOL HCL 20 MG TAB PO SCH ×3 (05:58→23:33)
[2017-02-16] MEDS: INSULIN NovoLIN REGULAR SUPPLEMENTAL SCALE SQ SCH ×5 (06:00→23:36)
[2017-02-16] MEDS: FREE WATER G-TUBE SCH ×3 (06:00→22:00)
[2017-02-16] MEDS: ARTIFICIAL TEARS OPTH SOLN 15 ML BTL EACH EYE SCH ×3 (06:01→23:30)
[2017-02-16] MEDS: metFORMIN HCL 500 MG TAB PO SCH ×2 (09:00→17:41)
[2017-02-16] MEDS: ARIPiprazole 15 MG TAB PO SCH (09:00)
[2017-02-16] MEDS: SODIUM CHLORIDE 0.9% FLUSH 5 ML FLUSH IVF SCH ×2 (09:00→23:33)
[2017-02-16] MEDS: FAMOTIDINE 20 MG TAB PO SCH ×2 (09:00→23:33)
[2017-02-16] MEDS: DOCUSATE SODIUM 50 MG/SENNA 8.6 MG TAB PO SCH ×2 (09:00→21:00)
[2017-02-16] MEDS: FUROSEMIDE 40 MG/5 ML UNIT DOSE CUP TUBE SCH (09:00)
[2017-02-16] MEDS: BACITRACIN TOP OINT 15 GM TUBE TOP SCH ×2 (09:00→23:30)
[2017-02-16] MEDS: POLYETHYLENE GLYCOL 17 GM PKG PO SCH ×2 (09:00→21:00)
[2017-02-16] MEDS: VALPROIC ACID SYRUP 250 MG/5 ML UDC PO SCH ×2 (09:00→23:33)
[2017-02-16] MEDS: levETIRAcetam 500 MG/5 ML UDC TUBE SCH ×2 (09:00→23:33)
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
--- NOTE | 2017-02-16 14:00 | RADRPT ---
EXAM DATE/TIME: 02/16/2017 13:13 [facility] COMPARISON: CHEST SINGLE AP, February 15, 2017, 6:40. INDICATIONS : Short of breath. MEDICAL HISTORY : None. SURGICAL HISTORY : Craniotomy. ENCOUNTER: Subsequent ACUITY: 2 weeks PAIN SCORE: Non-responsive. LOCATION: Bilateral chest FINDINGS: A single view of the chest demonstrates improving infiltrate in the right perihilar distribution with improving aeration in the left base. Minimal left perihilar infiltrate persists. No effusions. CONCLUSION: 1. Overall improvement in the radiographic appearance of the chest with resolving right perihilar and left basilar airspace disease. 2. Persistent minimal left perihilar air space process. Saurav Rey MD on February 16, 2017 at 13:57 Board Certified Radiologist. This report was verified electronically.
--- NOTE | 2017-02-16 15:57 | HHI.PR ---
Subjective Subjective Notes Lethargic, arousable to gentle stimulation Not verbalizing Objective Vitals/I&O Vital Signs Date Time Temp Pulse Resp B/P Pulse Ox O2 Delivery O2 Flow Rate FiO2 02/16/17 12:00 99.5 100 18 106/66 96 02/16/17 10:46 Nasal Cannula 2.00 02/12/17 12:54 35 Labs Laboratory Tests Test 02/15/17 02/16/17 02/16/17 02/16/17 17:05 03:21 05:45 13:35 Stool C. difficile Toxin (PCR) NEGATIVE Stl C. difficile Toxin PRESUMPTIVE Epiderm 027 NEGATIVE Total Creatine Kinase 123 87 Vancomycin Level Trough 16.6 Radiology Last Impressions Chest X-Ray 02/15/17 0600 Signed Impressions: Service Date/Time: Wednesday, February 15, 2017 06:40 - CONCLUSION: Slight interval improved aeration of the lungs with mild residual perihilar infiltrates noted. Delonte Long MD Head CT 02/14/17 0600 Signed Impressions: Service Date/Time: Tuesday, February 14, 2017 05:47 - CONCLUSION: Decreased conspicuity of subarachnoid hemorrhage. Stable bilateral subdural collections. Saeid Simpson MD Abdomen X-Ray 02/10/17 0000 Signed Impressions: Service Date/Time: Friday, February 10, 2017 10:31 - CONCLUSION: No acute disease. Chinmay Rodgers MD Hand X-Ray 02/06/17 0000 Signed Impressions: Service Date/Time: Monday, February 06, 2017 12:50 - CONCLUSION: Foreign body involving the dorsal soft tissues with dorsal soft tissue swelling. Danish Sims Jr., MD Thoracic Spine CT 02/05/17 002 Signed Impressions: Service Date/Time: Sunday, February 05, 2017 00:55 - CONCLUSION: Oblique nondisplaced fracture of the medial left 2nd rib at the costovertebral junction with mild adjacent soft tissue thickening. No vertebral body fractures or spondylolisthesis. The Danish Pollard MD Pelvis X-Ray 02/05/1725 Signed Impressions: Service Date/Time: Sunday, February 05, 2017 00:21 - CONCLUSION: The bony pelvic ring is grossly intact. Danish Pollard MD Maxillofacial CT 02/05/1725 Signed Impressions: Service Date/Time: Sunday, February 05, 2017 00:47 - CONCLUSION: 1. No facial bone fracture seen. 2. Left maxillary and bilateral posterior ethmoid sinus disease. Air-fluid level in the sphenoid sinus is nonspecific and could be due to intubation or sinus disease. Danish Pollard MD Lumbar Spine CT 02/05/1725 Signed Impressions: Service Date/Time: Sunday, February 05, 2017 00:55 - CONCLUSION: 1. Left paracentral disc protrusion at L5-S1 extending into the lateral recess. 2. Fractures of the left transverse processes of L2 and L5. 3. No vertebral body fractures and no evidence of spondylolisthesis. Danish Pollard MD Chest CT 02/05/1725 Signed Impressions: Service Date/Time: Sunday, February 05, 2017 00:55 - CONCLUSION: Dependent atelectasis throughout both lungs. No evidence of pneumothorax. Danish Pollard MD Cervical Spine CT 02/05/1725 Signed Impressions: Service Date/Time: Sunday, February 05, 2017 00:47 - CONCLUSION: Straightening of the upper cervical lordosis. No evidence of fracture or spondylolisthesis. Danish Pollard MD Abdomen/Pelvis CT 02/05/1725 Signed Impressions: Service Date/Time: Sunday, February 05, 2017 00:55 - CONCLUSION: 1. Findings suggest infarction of the upper pole the right kidney. No perinephric fluid and no definite laceration seen. 2. Fractures of the left transverse processes of L2 and L5. 3. Prominent gaseous distention of the stomach with gastric tube daily crossing the fundus. Recommend advancing the gastric tube several centimeters. 4. Probable left disc protrusion at L5-S1 extending into the lateral recess. Danish Pollard MD Tibia/Fibula X-Ray 02/05/17 Signed Impressions: Service Date/Time: Sunday, February 05, 2017 15:31 - CONCLUSION: Fractures both proximally and distally of the left fibula as above. Chinmay Marie MD Neck CTA 02/05/17 Signed Impressions: Service Date/Time: Sunday, February 05, 2017 12:00 - CONCLUSION: Normal examination. Chinmay Rodgers MD Head CTA 02/05/17 Signed Impressions: Service Date/Time: Sunday, February 05, 2017 12:00 - CONCLUSION: Normal examination. Chinmay Rodgers MD Ankle X-Ray 02/05/17 0000 Signed Impressions: Service Date/Time: Sunday, February 05, 2017 15:44 - CONCLUSION: Minimally displaced oblique fracture of the distal fibula. Chinmay Marie MD Narrative Exam GENERAL: 46 year old well-nourished, well developed male lying in bed. SKIN: Warm and dry. HEAD: Normocephalic. ENT: No nasal bleeding or discharge. Mucous membranes pink and moist. Left nare Dobbhoff in place. NECK: Trachea midline. No JVD. CARDIOVASCULAR: Regular rate and rhythm. RESPIRATORY: No accessory muscle use. Lungs clear and diminished to auscultation. Breath sounds equal bilaterally. GASTROINTESTINAL: Abdomen soft, non-tender, nondistended. + BS. MUSCULOSKELETAL: Extremities without cyanosis, generalized edema noted. No obvious deformities. NEUROLOGICAL: Lethargic and not verbalizing during visit A/P Assessment and Plan INJURIES: LEFT SDH LEFT parietal contusion RIGHT occipital hematoma with extra-axial blood at the craniocervical junction LEFT frontal scalp lac (george) RIGHT kidney infarction L2 and L5 transverse process fx LEFT rib fx at costovertebral junction (# 2) Aspiration LEFT distal fibula fx (non-op) PMHx: Schizophrenia 02/08: self extubated 02/10: Re-intubated 02/12: Extubated Diet: Dobhoff Vital @ 70 - 200 q 8 free water flushes. Failing daily swallow evaluations. Pulm: Nebs, nasal trumpet- suction PRN. Pain: Ativan, Tylenol. Valproic acid. (Seroquel) Activity: OOB. PT/OT evaluating. GI: Pepcid Bowel: Miralax, Mineral oil. LBM 02/15- Diarrhea DVT: SCDs. Lovenox. Replaced Mitchell catheter due to skin breakdown and use of daily Lasix. GI consulted for PEG placement. C-diff PCR negative. ST to perform cognitive evaluation. Neuropsychologist following. Cardiomyopathy. Echo reveals EF 20-25%. 20mg Lasix daily. Keppra for seizure prophylaxis. Hemoglobin A1c is 6.0. Medium dose SSI is not maintaining blood sugar less than 200. Added Metformin for tighter glucose control. Continue to monitor. ABX: Ancef Case management consulted for discharge planning. No family at bedside during visit to provide update. The exam, history, and the medical decision-making described in the above note were completed with the assistance of the mid-level provider. I reviewed and agree with the findings presented. I attest that I had a [id number] encounter with the patient on the same day, and personally performed and documented my assessment and findings in the medical record. Mook Kurtz Feb 16, 2017 15:57 Casper Lara MD Mar 04, 2017 23:33
[2017-02-16] MEDS: risperiDONE 1 MG TAB PO SCH (23:33)
[2017-02-17] VITALS (9 sets, daily range): BP systolic 103–119; BP diastolic 63–80; PULSE 80–98; RESP 20–24; TEMP 95.6–99.9; O2SAT 96–100
[2017-02-17 03:34] LABS: BASOPHIL # 0.1 TH/MM3 (0-0.2); BASOPHIL % 0.8 % (0.0-2.0); EOSINOPHIL # 0.2 TH/MM3 (0-0.4); HEMATOCRIT 28.3 % (39.0-51.0); HEMO FLAGS DIFF FINAL; LYMPH % 11.2 % (9.0-44.0); LYMPHOCYTE # 1.2 TH/MM3 (1.0-4.8); MEAN CELL VOLUME 97.8 FL (80.0-100.0); MEAN CORPUSCULAR HGB CONC 34.7 % (32.0-36.0); MONO % 13.2 % (0.0-8.0); NEUT % 72.8 % (16.0-70.0); PLATELET COUNT 383 TH/MM3 (150-450); RED CELL DISTRIBUTION WIDTH 15.2 % (11.6-17.2)
[2017-02-17 03:49] LABS: ALT (GPT) 63 U/L (12-78); ANION GAP 7 MEQ/L (5-15); AST (GOT) 30 U/L (15-37); BICARBONATE 28.7 MEQ/L (21.0-32.0); BLOOD UREA NITROGEN 13 MG/DL (7-18); CHLORIDE 101 MEQ/L (98-107); GLOMERULAR FILTRATION RATE 142 ML/MIN (>89); POTASSIUM 4.1 MEQ/L (3.5-5.1); SODIUM (NA) 137 MEQ/L (136-145)
[2017-02-17 03:52] LABS: ALKALINE PHOSPHATASE 72 U/L (45-117); TOTAL BILIRUBIN ADULT 0.4 MG/DL (0.2-1.0)
[2017-02-17] MEDS: RESP: ALBUTEROL 2.5 MG/IPRATROPIUM 0.5 MG NEB (SCH) NEB ×2 (04:21→09:19)
[2017-02-17] MEDS: ARTIFICIAL TEARS OPTH SOLN 15 ML BTL EACH EYE SCH ×3 (05:32→22:28)
[2017-02-17] MEDS: PROPRANOLOL HCL 20 MG TAB PO SCH ×4 (05:32→22:26)
[2017-02-17] MEDS: VANCOMYCIN INJ 1,500 MG in SODIUM CHLORID 0.9% 500 ML INJ 500 ML IV SCH ×3 (05:32→22:33)
[2017-02-17] MEDS: INSULIN NovoLIN REGULAR SUPPLEMENTAL SCALE SQ SCH ×4 (05:50→23:31)
[2017-02-17] MEDS: FREE WATER G-TUBE SCH ×3 (05:50→22:00)
[2017-02-17] MEDS: DOCUSATE SODIUM 50 MG/SENNA 8.6 MG TAB PO SCH ×2 (09:00→21:00)
[2017-02-17] MEDS: POLYETHYLENE GLYCOL 17 GM PKG PO SCH (09:00)
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
[2017-02-17] MEDS: LACTATED RINGER'S 1000 ML IV SCH (10:30)
[2017-02-17] MEDS ORDERED: METOPROLOL TARTRATE 25 MG TAB PO PRN (10:30)
[2017-02-17] MEDS ORDERED: INSULIN HUMAN REGULAR 1,000 UNITS/10 ML VIAL SQ PRN (10:30)
[2017-02-17] MEDS: SODIUM CHLORID 0.9% 500 ML IV SCH (10:30)
[2017-02-17] MEDS: SODIUM CHLORIDE 0.9% FLUSH 5 ML FLUSH IVF SCH ×2 (10:37→22:27)
[2017-02-17] MEDS: VALPROIC ACID SYRUP 250 MG/5 ML UDC PO SCH ×2 (10:38→22:27)
[2017-02-17] MEDS: levETIRAcetam 500 MG/5 ML UDC TUBE SCH ×2 (10:39→22:26)
[2017-02-17] MEDS: ARIPiprazole 15 MG TAB PO SCH (10:39)
[2017-02-17] MEDS: FAMOTIDINE 20 MG TAB PO SCH ×2 (10:39→22:26)
[2017-02-17] MEDS: metFORMIN HCL 500 MG TAB PO SCH ×2 (10:39→17:41)
[2017-02-17] MEDS: FUROSEMIDE 40 MG/5 ML UNIT DOSE CUP TUBE SCH (10:39)
[2017-02-17] MEDS: BACITRACIN TOP OINT 15 GM TUBE TOP SCH ×2 (10:40→22:29)
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
[2017-02-17] MEDS ORDERED: PROPOFOL 200 MG/20 ML AMP IV ONE (14:07)
--- NOTE | 2017-02-17 14:30 | GIPROC ---
[facility] [address] [facility]. [facility], [id number] EGD WITH PEG PROCEDURE REPORT EXAM DATE: 02/17/2017 PATIENT NAME: Michael Arredondo MR#: [id number] BIRTHDATE: 1970 ATTENDING: Suha Looney MD ORDER #: [id number] FRICTION WELDING MACHINE OPERATOR: Jimmy Tran and Sandra Dennis STATUS: inpatient INDICATIONS: The patient is a 46 yr old male here for an EGD with PEG due to failure to thrive, feeding difficulties PROCEDURE PERFORMED: EGD with PEG placement MEDICATIONS: None and Per Anesthesia. TOPICAL ANESTHETIC: none CONSENT: The patient understands the risks and benefits of the procedure and understands that these risks include, but are not limited to: sedation, allergic reaction, infection, perforation and/or bleeding. Alternative means of evaluation and treatment include, among others: physical exam, x-rays, and/or surgical intervention. The patient elects to proceed with this endoscopic procedure. medical equipment was checked for proper function. Hand hygiene and appropriate measures for infection prevention was taken. After the risks, benefits and alternatives of the procedure were thoroughly explained, Informed consent was verified, confirmed and timeout was successfully executed by the treatment team. The patient was anesthetized with topical anesthesia and the Pentax [id number] endoscope was introduced through the mouth and advanced to the second portion of the duodenum. The instrument was slowly withdrawn as the mucosa was fully examined. The upper, middle, and distal third of the esophagus were carefully inspected and no abnormalities were noted. The z-line was well seen at the GEJ. The endoscope was pushed into the fundus which was normal including a retroflexed view. The antrum, first and second part of the duodenum were unremarkable. The stomach was then inflated with air, and by a combination of transillumination and manual palpation, the site for the gastrostomy tube placement was selected and marked on the anterior abdominal wall. The skin of the anterior abdomen was surgically prepped and draped with sterile towels. Utilizing strict sterile technique, the selected site was then anesthetized with 1% xylocaine by injection into the skin and subcutaneous tissue. A 1 cm incision was made through the skin and subcutaneous tissue, and the needle/cannula assembly was then passed through the abdominal wall and through the anterior wall of the stomach, maintaining visualization with the endoscope. A snare device previously placed through the instrument channel was then opened and placed around the cannula, the needle was removed, and the insertion wire was passed through the cannula and into the stomach lumen. The snare was then loosened from the cannula, and repositioned to snare the insertion wire. The snare was then pulled up to the endoscope distal tip, and the scope was then withdrawn bringing with it the snare and insertion wire. The insertion wire was then released from the snare, and then loop-attached to the gastrostomy tube. Using the "pull technique", the G-tube was then pulled into place by traction on the insertion wire at the abdominal wall end. The G-tube insertion site was then cleansed once again, and the external bolster was placed over the tube to secure it to the abdominal wall. A sterile dressing was then applied, and the procedure terminated. a hiatal hernia The gastroscope was then slowly withdrawn and removed. ADVERSE EVENT: There were no complications. IMPRESSIONS: 1. The upper, middle, and distal third of the esophagus were carefully inspected and no abnormalities were noted. The z-line was well seen at the GEJ. The endoscope was pushed into the fundus which was normal including a retroflexed view. The antrum, first and second part of the duodenum were unremarkable. 2. A hiatal hernia RECOMMENDATIONS: 1. Anti-reflux regimen 2. PEG recomendations: 1- NPO for 6 hours except for meds 2- Flush PEG tube every 6 hours with water and after each PEG feeding 3- May resume regular diet in the morning 4- May use Ensure or Boost etc. for PEG tube feeding REPEAT EXAM: procedure as needed Suha Looney MD eSigned: Suha Looney MD 02/17/2017 2:30 PM cc: PATIENT NAME: Michael Arredondo MR#: [id number]
[2017-02-17] MEDS ORDERED: DO NOT ADM ANY ANTICOAGULANT DRUGS XX PRN (15:00)
[2017-02-17] MEDS ORDERED: MIDAZOLAM HCL 2 MG/2 ML VIAL ONE (15:36)
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
--- NOTE | 2017-02-17 18:01 | HHI.PR ---
Subjective Subjective Notes S/P PEG placement Objective Vitals/I&O Vital Signs Date Time Temp Pulse Resp B/P Pulse Ox O2 Delivery O2 Flow Rate FiO2 02/17/17 16:00 95.6 93 20 103/68 100 02/17/17 09:21 Nasal Cannula 2.00 Labs Laboratory Tests Test 02/16/17 02/17/17 02/17/17 19:34 03:10 12:01 Total Creatine Kinase 84 66 72 White Blood Count 11.0 Red Blood Count 2.90 Hemoglobin 9.8 Hematocrit 28.3 Mean Corpuscular Volume 97.8 Mean Corpuscular Hemoglobin 34.0 Mean Corpuscular Hemoglobin 34.7 Concent Red Cell Distribution Width 15.2 Platelet Count 383 Mean Platelet Volume 8.5 Neutrophils (%) (Auto) 72.8 Lymphocytes (%) (Auto) 11.2 Monocytes (%) (Auto) 13.2 Eosinophils (%) (Auto) 2.0 Basophils (%) (Auto) 0.8 Neutrophils # (Auto) 8.0 Lymphocytes # (Auto) 1.2 Monocytes # (Auto) 1.5 Eosinophils # (Auto) 0.2 Basophils # (Auto) 0.1 CBC Comment DIFF FINAL Differential Comment Sodium Level 137 Potassium Level 4.1 Chloride Level 101 Carbon Dioxide Level 28.7 Anion Gap 7 Blood Urea Nitrogen 13 Creatinine 0.61 Estimat Glomerular Filtration 142 Rate Random Glucose 139 Calcium Level 8.2 Total Bilirubin 0.4 Aspartate Amino Transf 30 (AST/SGOT) Alanine Aminotransferase 63 (ALT/SGPT) Alkaline Phosphatase 72 Total Protein 7.0 Albumin 2.6 Radiology Last Impressions Chest X-Ray 02/15/17 0600 Signed Impressions: Service Date/Time: Wednesday, February 15, 2017 06:40 - CONCLUSION: Slight interval improved aeration of the lungs with mild residual perihilar infiltrates noted. Delonte Long MD Head CT 02/14/17 0600 Signed Impressions: Service Date/Time: Tuesday, February 14, 2017 05:47 - CONCLUSION: Decreased conspicuity of subarachnoid hemorrhage. Stable bilateral subdural collections. Saeid Simpson MD Abdomen X-Ray 02/10/17 0000 Signed Impressions: Service Date/Time: Friday, February 10, 2017 10:31 - CONCLUSION: No acute disease. Chinmay Rodgers MD Hand X-Ray 02/06/17 0000 Signed Impressions: Service Date/Time: Monday, February 06, 2017 12:50 - CONCLUSION: Foreign body involving the dorsal soft tissues with dorsal soft tissue swelling. Danish Sims Jr., MD Thoracic Spine CT 02/05/1725 Signed Impressions: Service Date/Time: Sunday, February 05, 2017 00:55 - CONCLUSION: Oblique nondisplaced fracture of the medial left 2nd rib at the costovertebral junction with mild adjacent soft tissue thickening. No vertebral body fractures or spondylolisthesis. The Danish Pollard MD Pelvis X-Ray 02/05/1725 Signed Impressions: Service Date/Time: Sunday, February 05, 2017 00:21 - CONCLUSION: The bony pelvic ring is grossly intact. Danish Pollard MD Maxillofacial CT 02/05/1725 Signed Impressions: Service Date/Time: Sunday, February 05, 2017 00:47 - CONCLUSION: 1. No facial bone fracture seen. 2. Left maxillary and bilateral posterior ethmoid sinus disease. Air-fluid level in the sphenoid sinus is nonspecific and could be due to intubation or sinus disease. Danish Pollard MD Lumbar Spine CT 02/05/1725 Signed Impressions: Service Date/Time: Sunday, February 05, 2017 00:55 - CONCLUSION: 1. Left paracentral disc protrusion at L5-S1 extending into the lateral recess. 2. Fractures of the left transverse processes of L2 and L5. 3. No vertebral body fractures and no evidence of spondylolisthesis. Danish Pollard MD Chest CT 02/05/1725 Signed Impressions: Service Date/Time: Sunday, February 05, 2017 00:55 - CONCLUSION: Dependent atelectasis throughout both lungs. No evidence of pneumothorax. Danish Pollard MD Cervical Spine CT 02/05/1725 Signed Impressions: Service Date/Time: Sunday, February 05, 2017 00:47 - CONCLUSION: Straightening of the upper cervical lordosis. No evidence of fracture or spondylolisthesis. Danish Pollard MD Abdomen/Pelvis CT 02/05/176 Signed Impressions: Service Date/Time: Sunday, February 05, 2017 00:55 - CONCLUSION: 1. Findings suggest infarction of the upper pole the right kidney. No perinephric fluid and no definite laceration seen. 2. Fractures of the left transverse processes of L2 and L5. 3. Prominent gaseous distention of the stomach with gastric tube daily crossing the fundus. Recommend advancing the gastric tube several centimeters. 4. Probable left disc protrusion at L5-S1 extending into the lateral recess. Danish Pollard MD Tibia/Fibula X-Ray 02/05/17 Signed Impressions: Service Date/Time: Sunday, February 05, 2017 15:31 - CONCLUSION: Fractures both proximally and distally of the left fibula as above. Chinmay Marie MD Neck CTA 02/05/17 Signed Impressions: Service Date/Time: Sunday, February 05, 2017 12:00 - CONCLUSION: Normal examination. Chinmay Rodgers MD Head CTA 02/05/17 Signed Impressions: Service Date/Time: Sunday, February 05, 2017 12:00 - CONCLUSION: Normal examination. Chinmay Rodgers MD Ankle X-Ray 02/05/17 Signed Impressions: Service Date/Time: Sunday, February 05, 2017 15:44 - CONCLUSION: Minimally displaced oblique fracture of the distal fibula. Chinmay Marie MD Narrative Exam GENERAL: 46 year old well-nourished, well developed male lying in bed. SKIN: Warm and dry. HEAD: Normocephalic. ENT: No nasal bleeding or discharge. Mucous membranes pink and moist. NECK: Trachea midline. No JVD. CARDIOVASCULAR: Regular rate and rhythm. RESPIRATORY: No accessory muscle use. Lungs clear and diminished to auscultation. Breath sounds equal bilaterally. GASTROINTESTINAL: Abdomen soft, non-tender, nondistended. + BS. MUSCULOSKELETAL: Extremities without cyanosis, generalized edema noted. No obvious deformities. NEUROLOGICAL: Lethargic and not verbalizing during visit A/P Assessment and Plan INJURIES: LEFT SDH LEFT parietal contusion RIGHT occipital hematoma with extra-axial blood at the craniocervical junction LEFT frontal scalp lac (george) RIGHT kidney infarction L2 and L5 transverse process fx LEFT rib fx at costovertebral junction (# 2) Aspiration LEFT distal fibula fx (non-op) PMHx: Schizophrenia 02/08: self extubated 02/10: Re-intubated 02/12: Extubated Diet: Nothing by mouth for PEG placement. Pulm: Nebs, nasal trumpet- suction PRN. Pain: Ativan, Tylenol. Valproic acid. (Seroquel) Activity: OOB. PT/OT evaluating. GI: Pepcid Bowel: Rae-colace. LBM 02/17- Diarrhea DVT: SCDs. Lovenox. Replaced Mitchell catheter due to skin breakdown and use of daily Lasix. C-diff PCR negative. ST to perform cognitive evaluation. Neuropsychologist following. Cardiomyopathy. Echo reveals EF 20-25%. 20mg Lasix daily. Keppra for seizure prophylaxis. Medium dose SSI, Metformin. Continue to monitor. Case management consulted for discharge planning. No family at bedside during visit to provide update. The exam, history, and the medical decision-making described in the above note were completed with the assistance of the mid-level provider. I reviewed and agree with the findings presented. I attest that I had a [id number] encounter with the patient on the same day, and personally performed and documented my assessment and findings in the medical record. Mook Kurtz Feb 17, 2017 18:01 Casper Lara MD Mar 04, 2017 23:37
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
[2017-02-17] MEDS: risperiDONE 1 MG TAB PO SCH (22:26)
[2017-02-18] VITALS (10 sets, daily range): BP systolic 92–115; BP diastolic 58–66; PULSE 74–111; RESP 17–24; TEMP 96–99.8; O2SAT 95–99
[2017-02-18] MEDS: SODIUM CHLORID 0.9% 500 ML IV SCH (03:10)
[2017-02-18] MEDS: PROPRANOLOL HCL 20 MG TAB PO SCH ×3 (05:26→22:04)
[2017-02-18] MEDS: FREE WATER G-TUBE SCH ×3 (05:26→22:00)
[2017-02-18] MEDS: VANCOMYCIN INJ 1,500 MG in SODIUM CHLORID 0.9% 500 ML INJ 500 ML IV SCH ×3 (05:26→22:08)
[2017-02-18] MEDS: ARTIFICIAL TEARS OPTH SOLN 15 ML BTL EACH EYE SCH ×3 (05:27→22:00)
[2017-02-18] MEDS: INSULIN NovoLIN REGULAR SUPPLEMENTAL SCALE SQ SCH ×4 (05:30→23:56)
[2017-02-18 06:18] LABS: AUTOMATED NEUTROPHIL # 7.9 TH/MM3 (1.8-7.7); BASOPHIL % 0.4 % (0.0-2.0); EOSINOPHIL # 0.3 TH/MM3 (0-0.4); EOSINOPHIL % 2.3 % (0.0-4.0); HEMATOCRIT 27.3 % (39.0-51.0); HEMO FLAGS DIFF FINAL; LYMPH % 11.4 % (9.0-44.0); LYMPHOCYTE # 1.2 TH/MM3 (1.0-4.8); MEAN CELL VOLUME 97.4 FL (80.0-100.0); MEAN CORPUSCULAR HEMOGLOBIN 34.3 PG (27.0-34.0); MEAN CORPUSCULAR HGB CONC 35.2 % (32.0-36.0); MONO % 13.4 % (0.0-8.0); NEUT % 72.5 % (16.0-70.0); PLATELET COUNT 452 TH/MM3 (150-450); RED CELL DISTRIBUTION WIDTH 14.8 % (11.6-17.2); WHITE BLOOD COUNT 10.9 TH/MM3 (4.0-11.0)
[2017-02-18 06:52] LABS: ALKALINE PHOSPHATASE 76 U/L (45-117); ALT (GPT) 67 U/L (12-78); ANION GAP 8 MEQ/L (5-15); AST (GOT) 34 U/L (15-37); BICARBONATE 29.9 MEQ/L (21.0-32.0); BLOOD UREA NITROGEN 15 MG/DL (7-18); CHLORIDE 97 MEQ/L (98-107); GLOMERULAR FILTRATION RATE 140 ML/MIN (>89); POTASSIUM 4.1 MEQ/L (3.5-5.1); SODIUM (NA) 135 MEQ/L (136-145); TOTAL BILIRUBIN ADULT 0.5 MG/DL (0.2-1.0)
[2017-02-18] MEDS: metFORMIN HCL 500 MG TAB PO SCH ×2 (09:00→17:03)
[2017-02-18] MEDS: BACITRACIN TOP OINT 15 GM TUBE TOP SCH ×2 (09:00→22:04)
[2017-02-18] MEDS: SODIUM CHLORIDE 0.9% FLUSH 5 ML FLUSH IVF SCH ×2 (09:00→22:03)
[2017-02-18] MEDS: ARIPiprazole 15 MG TAB PO SCH (09:00)
[2017-02-18] MEDS: FAMOTIDINE 20 MG TAB PO SCH ×2 (09:00→22:04)
[2017-02-18] MEDS: DOCUSATE SODIUM 50 MG/SENNA 8.6 MG TAB PO SCH ×2 (09:00→22:04)
[2017-02-18] MEDS: levETIRAcetam 500 MG/5 ML UDC TUBE SCH ×2 (10:07→22:03)
[2017-02-18] MEDS: FUROSEMIDE 40 MG/5 ML UNIT DOSE CUP TUBE SCH (10:08)
[2017-02-18] MEDS: VALPROIC ACID SYRUP 250 MG/5 ML UDC PO SCH ×2 (10:08→22:03)
[2017-02-18] MEDS: GABAPENTIN 100 MG CAP PO SCH ×3 (10:08→17:04)
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
[2017-02-18] MEDS: risperiDONE 1 MG TAB PO SCH (22:04)
[2017-02-19] VITALS (9 sets, daily range): BP systolic 102–146; BP diastolic 52–71; PULSE 79–97; RESP 18–20; TEMP 96.1–99; O2SAT 96–100
[2017-02-19] MEDS: INSULIN NovoLIN REGULAR SUPPLEMENTAL SCALE SQ SCH ×3 (06:00→16:59)
[2017-02-19] MEDS: FREE WATER G-TUBE SCH ×3 (06:00→22:00)
[2017-02-19] MEDS: ARTIFICIAL TEARS OPTH SOLN 15 ML BTL EACH EYE SCH ×3 (06:00→22:26)
[2017-02-19] MEDS: PROPRANOLOL HCL 20 MG TAB PO SCH ×3 (06:42→22:00)
[2017-02-19] MEDS: VANCOMYCIN INJ 1,500 MG in SODIUM CHLORID 0.9% 500 ML INJ 500 ML IV SCH ×2 (06:42→22:26)
[2017-02-19] MEDS: VALPROIC ACID SYRUP 250 MG/5 ML UDC PO SCH ×2 (09:00→22:25)
[2017-02-19] MEDS: SODIUM CHLORIDE 0.9% FLUSH 5 ML FLUSH IVF SCH ×2 (09:00→22:26)
[2017-02-19] MEDS: BACITRACIN TOP OINT 15 GM TUBE TOP SCH ×2 (09:00→22:26)
[2017-02-19] MEDS: FAMOTIDINE 20 MG TAB PO SCH ×2 (09:00→22:25)
[2017-02-19] MEDS: ARIPiprazole 15 MG TAB PO SCH (09:00)
[2017-02-19] MEDS: levETIRAcetam 500 MG/5 ML UDC TUBE SCH ×2 (09:00→22:24)
[2017-02-19] MEDS: GABAPENTIN 100 MG CAP PO SCH ×3 (09:00→17:04)
[2017-02-19] MEDS: FUROSEMIDE 40 MG/5 ML UNIT DOSE CUP TUBE SCH (09:00)
[2017-02-19] MEDS: metFORMIN HCL 500 MG TAB PO SCH ×2 (09:03→17:04)
[2017-02-19] MEDS: DOCUSATE SODIUM 50 MG/SENNA 8.6 MG TAB PO SCH ×2 (09:03→22:25)
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
[2017-02-19] MEDS: risperiDONE 1 MG TAB PO SCH (22:25)
[2017-02-20] VITALS (10 sets, daily range): BP systolic 107–122; BP diastolic 59–71; PULSE 80–108; RESP 18–22; TEMP 96–99.2; O2SAT 98–100
[2017-02-20] MEDS: FREE WATER G-TUBE SCH ×3 (05:38→22:00)
[2017-02-20] MEDS: VANCOMYCIN INJ 1,500 MG in SODIUM CHLORID 0.9% 500 ML INJ 500 ML IV SCH ×3 (05:38→23:28)
[2017-02-20] MEDS: PROPRANOLOL HCL 20 MG TAB PO SCH ×3 (05:38→23:27)
[2017-02-20] MEDS: ARTIFICIAL TEARS OPTH SOLN 15 ML BTL EACH EYE SCH ×3 (05:38→23:29)
[2017-02-20 05:51] LABS: AUTOMATED NEUTROPHIL # 6.2 TH/MM3 (1.8-7.7); BASOPHIL # 0.1 TH/MM3 (0-0.2); EOSINOPHIL # 0.4 TH/MM3 (0-0.4); EOSINOPHIL % 4.3 % (0.0-4.0); HEMATOCRIT 30.2 % (39.0-51.0); HEMO FLAGS DIFF FINAL; LYMPH % 10.5 % (9.0-44.0); LYMPHOCYTE # 0.9 TH/MM3 (1.0-4.8); MEAN CELL VOLUME 97.4 FL (80.0-100.0); MEAN CORPUSCULAR HEMOGLOBIN 33.2 PG (27.0-34.0); MEAN CORPUSCULAR HGB CONC 34.1 % (32.0-36.0); MONO % 13.9 % (0.0-8.0); NEUT % 70.3 % (16.0-70.0); PLATELET COUNT 486 TH/MM3 (150-450); RED CELL DISTRIBUTION WIDTH 14.3 % (11.6-17.2); WHITE BLOOD COUNT 8.9 TH/MM3 (4.0-11.0)
[2017-02-20] MEDS: INSULIN NovoLIN REGULAR SUPPLEMENTAL SCALE SQ SCH ×4 (06:25→18:00)
[2017-02-20 06:28] LABS: ALT (GPT) 59 U/L (12-78); ANION GAP 7 MEQ/L (5-15); AST (GOT) 27 U/L (15-37); BLOOD UREA NITROGEN 11 MG/DL (7-18); CHLORIDE 99 MEQ/L (98-107); GLOMERULAR FILTRATION RATE 183 ML/MIN (>89); MAGNESIUM 2.3 MG/DL (1.5-2.5); POTASSIUM 3.9 MEQ/L (3.5-5.1); SODIUM (NA) 137 MEQ/L (136-145)
[2017-02-20 06:31] LABS: ALKALINE PHOSPHATASE 88 U/L (45-117); TOTAL BILIRUBIN ADULT 0.4 MG/DL (0.2-1.0)
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
[2017-02-20] MEDS: DOCUSATE SODIUM 50 MG/SENNA 8.6 MG TAB PO SCH ×2 (09:00→23:27)
[2017-02-20] MEDS: VALPROIC ACID SYRUP 250 MG/5 ML UDC PO SCH ×2 (09:21→23:27)
[2017-02-20] MEDS: ARIPiprazole 15 MG TAB PO SCH (09:21)
[2017-02-20] MEDS: GABAPENTIN 100 MG CAP PO SCH ×3 (09:21→18:00)
[2017-02-20] MEDS: FAMOTIDINE 20 MG TAB PO SCH ×2 (09:21→21:00)
[2017-02-20] MEDS: levETIRAcetam 500 MG/5 ML UDC TUBE SCH ×2 (09:21→23:27)
[2017-02-20] MEDS: SODIUM CHLORIDE 0.9% FLUSH 5 ML FLUSH IVF SCH ×2 (09:22→23:28)
[2017-02-20] MEDS: metFORMIN HCL 500 MG TAB PO SCH ×2 (09:22→18:00)
[2017-02-20] MEDS: LACTATED RINGER'S 1000 ML IV SCH (09:23)
[2017-02-20] MEDS: BACITRACIN TOP OINT 15 GM TUBE TOP SCH ×2 (09:23→23:29)
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
[2017-02-20] MEDS: KETOROLAC TROMETHAMINE 30 MG/ML (IVP) VIAL IVP SCH ×2 (13:13→18:06)
[2017-02-20] MEDS: METHOCARBAMOL 500 MG TAB PO SCH ×2 (13:14→23:27)
[2017-02-20] MEDS: risperiDONE 1 MG TAB PO SCH (23:27)
[2017-02-21] VITALS (10 sets, daily range): BP systolic 102–139; BP diastolic 66–80; PULSE 81–100; RESP 18–24; TEMP 96.9–100.4; O2SAT 98–100
[2017-02-21] MEDS: KETOROLAC TROMETHAMINE 30 MG/ML (IVP) VIAL IVP SCH ×4 (02:43→23:27)
[2017-02-21] MEDS: PROPRANOLOL HCL 20 MG TAB PO SCH ×3 (05:56→23:20)
[2017-02-21] MEDS: VANCOMYCIN INJ 1,500 MG in SODIUM CHLORID 0.9% 500 ML INJ 500 ML IV SCH ×2 (05:56→12:38)
[2017-02-21] MEDS: METHOCARBAMOL 500 MG TAB PO SCH ×2 (05:56→12:26)
[2017-02-21] MEDS: FREE WATER G-TUBE SCH ×3 (06:00→22:00)
[2017-02-21] MEDS: ARTIFICIAL TEARS OPTH SOLN 15 ML BTL EACH EYE SCH ×3 (06:02→23:24)
[2017-02-21] MEDS: INSULIN NovoLIN REGULAR SUPPLEMENTAL SCALE SQ SCH ×5 (06:05→23:22)
[2017-02-21] MEDS: DOCUSATE SODIUM 50 MG/SENNA 8.6 MG TAB PO SCH (09:00)
[2017-02-21] MEDS: SODIUM CHLORIDE 0.9% FLUSH 5 ML FLUSH IVF SCH ×2 (09:49→23:23)
[2017-02-21] MEDS: levETIRAcetam 500 MG/5 ML UDC TUBE SCH (09:49)
[2017-02-21] MEDS: metFORMIN HCL 500 MG TAB PO SCH ×2 (09:50→17:36)
[2017-02-21] MEDS: FAMOTIDINE 20 MG TAB PO SCH ×2 (09:50→23:20)
[2017-02-21] MEDS: GABAPENTIN 100 MG CAP PO SCH ×3 (09:50→17:36)
[2017-02-21] MEDS: VALPROIC ACID SYRUP 250 MG/5 ML UDC PO SCH ×2 (10:03→23:20)
[2017-02-21] MEDS: ARIPiprazole 15 MG TAB PO SCH (10:03)
[2017-02-21] MEDS: BACITRACIN TOP OINT 15 GM TUBE TOP SCH ×2 (10:07→23:23)
[2017-02-21] MEDS: LACTATED RINGER'S 1000 ML IV SCH (10:07)
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
[2017-02-21] MEDS: ACETAMINOPHEN 650 MG/20.3 ML UDC PO PRN ×2 (12:38→23:33)
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
[2017-02-21] MEDS ORDERED: METHOCARBAMOL 500 MG TAB PO PRN (16:30)
[2017-02-21] MEDS: risperiDONE 1 MG TAB PO SCH (23:20)
[2017-02-22] VITALS (7 sets, daily range): BP systolic 97–115; BP diastolic 54–72; PULSE 87–114; RESP 18–22; TEMP 96.3–101.1; O2SAT 96–100
[2017-02-22] MEDS: KETOROLAC TROMETHAMINE 30 MG/ML (IVP) VIAL IVP SCH ×4 (01:00→18:42)
[2017-02-22] MEDS ORDERED: PHARMACY ORDERED LAB XX ONE (05:45)
[2017-02-22] MEDS: PROPRANOLOL HCL 20 MG TAB PO SCH ×2 (06:00→13:55)
[2017-02-22] MEDS: FREE WATER G-TUBE SCH ×3 (06:00→18:00)
[2017-02-22] MEDS: ARTIFICIAL TEARS OPTH SOLN 15 ML BTL EACH EYE SCH ×2 (06:35→13:55)
[2017-02-22] MEDS: INSULIN NovoLIN REGULAR SUPPLEMENTAL SCALE SQ SCH ×3 (06:36→18:45)
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
[2017-02-22] MEDS: GABAPENTIN 100 MG CAP PO SCH ×3 (08:22→18:37)
[2017-02-22] MEDS: metFORMIN HCL 500 MG TAB PO SCH ×2 (08:22→18:37)
[2017-02-22] MEDS: ARIPiprazole 10 MG TAB PO SCH (08:22)
[2017-02-22] MEDS: BACITRACIN TOP OINT 15 GM TUBE TOP SCH ×2 (08:23→20:30)
[2017-02-22] MEDS: VALPROIC ACID SYRUP 250 MG/5 ML UDC PO SCH ×2 (08:23→20:30)
[2017-02-22] MEDS: LACTATED RINGER'S 1000 ML IV SCH (08:23)
[2017-02-22] MEDS: FAMOTIDINE 20 MG TAB PO SCH ×2 (08:23→20:30)
[2017-02-22] MEDS: SODIUM CHLORIDE 0.9% FLUSH 5 ML FLUSH IVF SCH ×2 (08:23→20:31)
--- NOTE | 2017-02-22 09:41 | RADRPT ---
EXAM DATE/TIME: 02/22/2017 08:25 [facility] COMPARISON: ANKLE LEFT LIMITED (AP&LAT), February 05, 2017, 15:44. INDICATIONS : Patient has pain in left ankle. MEDICAL HISTORY : unobtainable. SURGICAL HISTORY : unobtainable. ENCOUNTER: Initial ACUITY: 1 day PAIN SCORE: 0/10 LOCATION: Left Ankle. FINDINGS: Fracture distal fibula is noted in fiberglass. Alignment remains reasonably anatomic. CONCLUSION: Healing fracture in fiberglass. Sandip Velazquez MD FACR on February 22, 2017 at 9:30 Board Certified Radiologist. This report was verified electronically.
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
[2017-02-22 19:21] LABS: BACTERIA, URINE RARE /hpf; BLOOD, URINE MOD (NEG); GLUCOSE,URINE NEG (NEG); KETONE, URINE NEG (NEG); MUCUS URINE FEW /lpf (OCC); NITRITE,URINE NEG (NEG); PH, URINE 6.5 (5.0-8.5); URINE COLOR YELLOW (YELLW/STRAW)
[2017-02-22 19:23] LABS: COMMENT (UR) CATH-CULTURE IND; CULTURE IF INDICATED CATH CULTURE IND
[2017-02-22] MEDS: risperiDONE 1 MG TAB PO SCH (20:29)
[2017-02-23] VITALS (8 sets, daily range): BP systolic 96–122; BP diastolic 59–68; PULSE 85–107; RESP 16–19; TEMP 95.7–97.9; O2SAT 96–100
[2017-02-23] MEDS: PROPRANOLOL HCL 20 MG TAB PO SCH ×4 (00:15→21:36)
[2017-02-23] MEDS: INSULIN NovoLIN REGULAR SUPPLEMENTAL SCALE SQ SCH ×5 (00:15→23:11)
[2017-02-23] MEDS: ARTIFICIAL TEARS OPTH SOLN 15 ML BTL EACH EYE SCH ×4 (00:16→21:36)
[2017-02-23] MEDS: FREE WATER G-TUBE SCH ×5 (00:16→23:11)
[2017-02-23] MEDS: KETOROLAC TROMETHAMINE 30 MG/ML (IVP) VIAL IVP SCH ×4 (00:21→19:02)
[2017-02-23] MEDS: ARIPiprazole 10 MG TAB PO SCH (09:00)
[2017-02-23] MEDS: VALPROIC ACID SYRUP 250 MG/5 ML UDC PO SCH (09:00)
[2017-02-23] MEDS: GABAPENTIN 100 MG CAP PO SCH ×3 (09:00→17:38)
[2017-02-23] MEDS: metFORMIN HCL 500 MG TAB PO SCH ×2 (09:00→17:38)
[2017-02-23] MEDS: FAMOTIDINE 20 MG TAB PO SCH ×2 (09:01→21:35)
[2017-02-23] MEDS: BACITRACIN TOP OINT 15 GM TUBE TOP SCH ×2 (09:01→21:35)
[2017-02-23] MEDS: SODIUM CHLORIDE 0.9% FLUSH 5 ML FLUSH IVF SCH ×2 (09:02→21:34)
[2017-02-23 09:08] LABS: AUTOMATED NEUTROPHIL # 6.1 TH/MM3 (1.8-7.7); BASOPHIL # 0.1 TH/MM3 (0-0.2); BASOPHIL % 0.8 % (0.0-2.0); EOSINOPHIL # 0.3 TH/MM3 (0-0.4); HEMATOCRIT 28.9 % (39.0-51.0); HEMO FLAGS DIFF FINAL; LYMPH % 14.5 % (9.0-44.0); LYMPHOCYTE # 1.3 TH/MM3 (1.0-4.8); MEAN CELL VOLUME 94.4 FL (80.0-100.0); MEAN CORPUSCULAR HEMOGLOBIN 33.7 PG (27.0-34.0); MEAN CORPUSCULAR HGB CONC 35.7 % (32.0-36.0); MONO % 10.3 % (0.0-8.0); NEUT % 70.4 % (16.0-70.0); PLATELET COUNT 491 TH/MM3 (150-450); RED BLOOD COUNT 3.06 MIL/MM3 (4.50-5.90); RED CELL DISTRIBUTION WIDTH 14.9 % (11.6-17.2); WHITE BLOOD COUNT 8.7 TH/MM3 (4.0-11.0)
[2017-02-23 09:30] LABS: ALKALINE PHOSPHATASE 99 U/L (45-117); ALT (GPT) 66 U/L (12-78); ANION GAP 8 MEQ/L (5-15); AST (GOT) 28 U/L (15-37); BICARBONATE 32.5 MEQ/L (21.0-32.0); BLOOD UREA NITROGEN 14 MG/DL (7-18); CHLORIDE 94 MEQ/L (98-107); GLOMERULAR FILTRATION RATE 151 ML/MIN (>89); POTASSIUM 4.2 MEQ/L (3.5-5.1); SODIUM (NA) 134 MEQ/L (136-145); TOTAL BILIRUBIN ADULT 0.3 MG/DL (0.2-1.0)
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
[2017-02-23] MEDS: risperiDONE 1 MG TAB PO SCH (21:35)
[2017-02-24] VITALS (9 sets, daily range): BP systolic 108–126; BP diastolic 60–74; PULSE 90–107; RESP 16–18; TEMP 96.9–97.6; O2SAT 95–100
[2017-02-24] MEDS: KETOROLAC TROMETHAMINE 30 MG/ML (IVP) VIAL IVP SCH ×4 (01:42→18:33)
[2017-02-24] MEDS: INSULIN NovoLIN REGULAR SUPPLEMENTAL SCALE SQ SCH ×4 (05:37→22:58)
[2017-02-24] MEDS: PROPRANOLOL HCL 20 MG TAB PO SCH ×3 (05:37→22:57)
[2017-02-24] MEDS: FREE WATER G-TUBE SCH ×4 (05:37→22:57)
[2017-02-24] MEDS: ARTIFICIAL TEARS OPTH SOLN 15 ML BTL EACH EYE SCH ×3 (05:37→20:16)
[2017-02-24] MEDS: metFORMIN HCL 500 MG TAB PO SCH ×2 (08:06→16:48)
[2017-02-24] MEDS: GABAPENTIN 100 MG CAP PO SCH ×3 (08:06→16:49)
[2017-02-24] MEDS: ARIPiprazole 10 MG TAB PO SCH (08:06)
[2017-02-24] MEDS: FAMOTIDINE 20 MG TAB PO SCH ×2 (08:06→20:15)
[2017-02-24] MEDS: SODIUM CHLORIDE 0.9% FLUSH 5 ML FLUSH IVF SCH ×2 (08:07→20:15)
[2017-02-24] MEDS: BACITRACIN TOP OINT 15 GM TUBE TOP SCH ×2 (08:07→20:16)
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
[2017-02-24] MEDS: risperiDONE 1 MG TAB PO SCH (20:15)
[2017-02-24] MEDS: ENOXAPARIN SODIUM 30 MG/0.3 ML SYRINGE SQ SCH (22:57)
[2017-02-25] VITALS (8 sets, daily range): BP systolic 98–107; BP diastolic 58–70; PULSE 80–98; RESP 16–20; TEMP 96.9–97.9; O2SAT 94–100
[2017-02-25] MEDS: KETOROLAC TROMETHAMINE 30 MG/ML (IVP) VIAL IVP SCH ×2 (01:00→06:15)
[2017-02-25] MEDS: FREE WATER G-TUBE SCH ×4 (05:35→22:52)
[2017-02-25] MEDS: ARTIFICIAL TEARS OPTH SOLN 15 ML BTL EACH EYE SCH ×3 (05:35→22:52)
[2017-02-25] MEDS: INSULIN NovoLIN REGULAR SUPPLEMENTAL SCALE SQ SCH ×3 (05:36→17:48)
[2017-02-25] MEDS: PROPRANOLOL HCL 20 MG TAB PO SCH ×3 (05:36→22:51)
[2017-02-25] MEDS: FAMOTIDINE 20 MG TAB PO SCH ×2 (09:23→22:51)
[2017-02-25] MEDS: metFORMIN HCL 500 MG TAB PO SCH ×2 (09:23→16:40)
[2017-02-25] MEDS: GABAPENTIN 100 MG CAP PO SCH ×3 (09:23→16:40)
[2017-02-25] MEDS: SODIUM CHLORIDE 0.9% FLUSH 5 ML FLUSH IVF SCH ×2 (09:23→22:52)
[2017-02-25] MEDS: ARIPiprazole 10 MG TAB PO SCH (09:23)
[2017-02-25] MEDS: BACITRACIN TOP OINT 15 GM TUBE TOP SCH ×2 (09:24→22:52)
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
[2017-02-25] MEDS: ENOXAPARIN SODIUM 30 MG/0.3 ML SYRINGE SQ SCH (11:56)
[2017-02-25] MEDS: risperiDONE 1 MG TAB PO SCH (22:50)
[2017-02-26] VITALS (8 sets, daily range): BP systolic 99–122; BP diastolic 57–69; PULSE 89–100; RESP 17–20; TEMP 96.3–98.6; O2SAT 96–100
[2017-02-26] MEDS: ENOXAPARIN SODIUM 30 MG/0.3 ML SYRINGE SQ SCH ×2 (00:25→12:22)
[2017-02-26 05:41] LABS: AUTOMATED NEUTROPHIL # 4.7 TH/MM3 (1.8-7.7); BASOPHIL # 0.1 TH/MM3 (0-0.2); EOSINOPHIL # 0.4 TH/MM3 (0-0.4); EOSINOPHIL % 4.4 % (0.0-4.0); HEMATOCRIT 30.3 % (39.0-51.0); LYMPH % 28.9 % (9.0-44.0); LYMPHOCYTE # 2.5 TH/MM3 (1.0-4.8); MEAN CELL VOLUME 94.9 FL (80.0-100.0); MEAN CORPUSCULAR HEMOGLOBIN 32.5 PG (27.0-34.0); MEAN CORPUSCULAR HGB CONC 34.2 % (32.0-36.0); MONO % 10.8 % (0.0-8.0); NEUT % 54.9 % (16.0-70.0); PLATELET COUNT 397 TH/MM3 (150-450); RED BLOOD COUNT 3.19 MIL/MM3 (4.50-5.90); RED CELL DISTRIBUTION WIDTH 15.2 % (11.6-17.2); WHITE BLOOD COUNT 8.6 TH/MM3 (4.0-11.0)
[2017-02-26 05:46] LABS: HEMO FLAGS AUTO DIFF
[2017-02-26] MEDS: INSULIN NovoLIN REGULAR SUPPLEMENTAL SCALE SQ SCH ×4 (06:00→16:59)
[2017-02-26] MEDS: FREE WATER G-TUBE SCH ×3 (06:00→17:00)
[2017-02-26 06:11] LABS: ALKALINE PHOSPHATASE 99 U/L (45-117); ALT (GPT) 57 U/L (12-78); ANION GAP 7 MEQ/L (5-15); AST (GOT) 31 U/L (15-37); BICARBONATE 32.1 MEQ/L (21.0-32.0); BLOOD UREA NITROGEN 14 MG/DL (7-18); CHLORIDE 96 MEQ/L (98-107); GLOMERULAR FILTRATION RATE 157 ML/MIN (>89); MAGNESIUM 2.2 MG/DL (1.5-2.5); POTASSIUM 4.1 MEQ/L (3.5-5.1); SODIUM (NA) 135 MEQ/L (136-145); TOTAL BILIRUBIN ADULT 0.2 MG/DL (0.2-1.0)
[2017-02-26 06:22] LABS: SCAN/DIFF AUTO DIFF CONFIRMED
[2017-02-26] MEDS: PROPRANOLOL HCL 20 MG TAB PO SCH ×3 (06:40→21:18)
[2017-02-26] MEDS: ARTIFICIAL TEARS OPTH SOLN 15 ML BTL EACH EYE SCH ×3 (06:41→21:18)
[2017-02-26] MEDS: SODIUM CHLORIDE 0.9% FLUSH 5 ML FLUSH IVF SCH ×2 (07:43→21:00)
[2017-02-26] MEDS: GABAPENTIN 100 MG CAP PO SCH ×3 (07:43→17:00)
[2017-02-26] MEDS: BACITRACIN TOP OINT 15 GM TUBE TOP SCH ×2 (07:44→21:18)
[2017-02-26] MEDS: metFORMIN HCL 500 MG TAB PO SCH ×2 (07:44→17:00)
[2017-02-26] MEDS: FAMOTIDINE 20 MG TAB PO SCH ×2 (07:44→21:17)
[2017-02-26] MEDS: ARIPiprazole 10 MG TAB PO SCH (07:44)
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
[2017-02-26] MEDS: risperiDONE 1 MG TAB PO SCH (21:17)
[2017-02-27] VITALS (10 sets, daily range): BP systolic 101–106; BP diastolic 59–69; PULSE 87–102; RESP 18–22; TEMP 95.4–98.2; O2SAT 95–100
[2017-02-27] MEDS: ENOXAPARIN SODIUM 30 MG/0.3 ML SYRINGE SQ SCH ×2 (00:42→12:02)
[2017-02-27] MEDS: FREE WATER G-TUBE SCH ×4 (06:00→17:20)
[2017-02-27] MEDS: INSULIN NovoLIN REGULAR SUPPLEMENTAL SCALE SQ SCH ×4 (06:00→18:30)
[2017-02-27] MEDS: PROPRANOLOL HCL 20 MG TAB PO SCH ×3 (06:07→22:36)
[2017-02-27] MEDS: ARTIFICIAL TEARS OPTH SOLN 15 ML BTL EACH EYE SCH ×3 (06:07→22:37)
[2017-02-27] MEDS: FAMOTIDINE 20 MG TAB PO SCH ×2 (07:45→22:36)
[2017-02-27] MEDS: GABAPENTIN 100 MG CAP PO SCH ×3 (07:45→17:20)
[2017-02-27] MEDS: SODIUM CHLORIDE 0.9% FLUSH 5 ML FLUSH IVF SCH ×2 (07:46→21:00)
[2017-02-27] MEDS: ARIPiprazole 10 MG TAB PO SCH (07:46)
[2017-02-27] MEDS: BACITRACIN TOP OINT 15 GM TUBE TOP SCH ×2 (07:46→22:37)
[2017-02-27] MEDS: metFORMIN HCL 500 MG TAB PO SCH ×2 (07:46→17:20)
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
[2017-02-27] MEDS: risperiDONE 1 MG TAB PO SCH (22:37)
[2017-02-28] VITALS (10 sets, daily range): BP systolic 91–110; BP diastolic 60–70; PULSE 62–132; RESP 17–18; TEMP 96–98.8; O2SAT 94–97
[2017-02-28] MEDS: ENOXAPARIN SODIUM 30 MG/0.3 ML SYRINGE SQ SCH ×3 (00:39→23:53)
[2017-02-28] MEDS: ARTIFICIAL TEARS OPTH SOLN 15 ML BTL EACH EYE SCH ×3 (05:47→21:57)
[2017-02-28] MEDS: FREE WATER G-TUBE SCH ×5 (05:47→23:50)
[2017-02-28] MEDS: PROPRANOLOL HCL 20 MG TAB PO SCH ×3 (05:47→21:56)
[2017-02-28] MEDS: INSULIN NovoLIN REGULAR SUPPLEMENTAL SCALE SQ SCH ×5 (06:00→23:56)
[2017-02-28] MEDS: SODIUM CHLORIDE 0.9% FLUSH 5 ML FLUSH IVF SCH ×2 (08:53→21:00)
[2017-02-28] MEDS: ARIPiprazole 5 MG TAB PO SCH (08:53)
[2017-02-28] MEDS: GABAPENTIN 100 MG CAP PO SCH ×3 (08:54→16:10)
[2017-02-28] MEDS: BACITRACIN TOP OINT 15 GM TUBE TOP SCH ×2 (08:54→21:57)
[2017-02-28] MEDS: metFORMIN HCL 500 MG TAB PO SCH ×2 (08:54→16:10)
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
[2017-02-28] MEDS: FAMOTIDINE 20 MG TAB PO SCH ×2 (14:35→21:56)
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
[2017-02-28] MEDS: risperiDONE 1 MG TAB PO SCH (21:56)
[2017-03-01] VITALS (7 sets, daily range): BP systolic 96–108; BP diastolic 57–70; PULSE 78–93; RESP 18; TEMP 96.5–98.2; O2SAT 95–100
[2017-03-01] MEDS: PROPRANOLOL HCL 20 MG TAB PO SCH ×3 (05:32→22:00)
[2017-03-01] MEDS: ARTIFICIAL TEARS OPTH SOLN 15 ML BTL EACH EYE SCH ×3 (05:32→22:57)
[2017-03-01] MEDS: FREE WATER G-TUBE SCH ×4 (05:32→23:04)
[2017-03-01] MEDS: INSULIN NovoLIN REGULAR SUPPLEMENTAL SCALE SQ SCH ×4 (05:34→23:05)
[2017-03-01] MEDS: GABAPENTIN 100 MG CAP PO SCH ×3 (08:09→18:25)
[2017-03-01] MEDS: ARIPiprazole 5 MG TAB PO SCH (08:09)
[2017-03-01] MEDS: metFORMIN HCL 500 MG TAB PO SCH ×2 (08:09→18:26)
[2017-03-01] MEDS: SODIUM CHLORIDE 0.9% FLUSH 5 ML FLUSH IVF SCH ×2 (08:09→21:00)
[2017-03-01] MEDS: BACITRACIN TOP OINT 15 GM TUBE TOP SCH ×2 (08:10→22:57)
[2017-03-01] MEDS: FAMOTIDINE 20 MG TAB PO SCH ×2 (08:10→22:56)
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
[2017-03-01] MEDS: ENOXAPARIN SODIUM 30 MG/0.3 ML SYRINGE SQ SCH ×2 (12:53→23:35)
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
[2017-03-01] MEDS: risperiDONE 1 MG TAB PO SCH (22:56)
[2017-03-02] VITALS (7 sets, daily range): BP systolic 92–120; BP diastolic 62–72; PULSE 74–99; RESP 18–20; TEMP 97.2–98.8; O2SAT 96–99
[2017-03-02] MEDS: INSULIN NovoLIN REGULAR SUPPLEMENTAL SCALE SQ SCH ×2 (06:00→11:55)
[2017-03-02] MEDS: PROPRANOLOL HCL 20 MG TAB PO SCH ×3 (06:00→22:45)
[2017-03-02] MEDS: FREE WATER G-TUBE SCH ×4 (06:00→22:45)
[2017-03-02] MEDS: ARTIFICIAL TEARS OPTH SOLN 15 ML BTL EACH EYE SCH ×2 (06:52→12:28)
[2017-03-02] MEDS: GABAPENTIN 100 MG CAP PO SCH ×3 (08:22→19:00)
[2017-03-02] MEDS: ARIPiprazole 5 MG TAB PO SCH (08:22)
[2017-03-02] MEDS: metFORMIN HCL 500 MG TAB PO SCH ×2 (08:22→18:59)
[2017-03-02] MEDS: FAMOTIDINE 20 MG TAB PO SCH ×2 (08:22→22:45)
[2017-03-02] MEDS: BACITRACIN TOP OINT 15 GM TUBE TOP SCH (08:23)
[2017-03-02] MEDS: SODIUM CHLORIDE 0.9% FLUSH 5 ML FLUSH IVF SCH ×2 (09:00→22:45)
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
[2017-03-02] MEDS: ENOXAPARIN SODIUM 30 MG/0.3 ML SYRINGE SQ SCH (12:22)
[2017-03-02] MEDS ORDERED: LACTULOSE SYRUP 20 GM/30 ML CUP PO ONE (14:30)
[2017-03-02] MEDS ORDERED: ARTIFICIAL TEARS OPTH SOLN 15 ML BTL EACH EYE PRN (14:30)
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
[2017-03-02] MEDS: DOCUSATE SODIUM 100 MG CAP PO SCH ×2 (18:59→22:45)
[2017-03-02] MEDS: risperiDONE 1 MG TAB PO SCH (22:45)
[2017-03-03] VITALS: BP 116/63; PULSE 84; RESP 20; TEMP 95.4; O2SAT 99
[2017-03-03] MEDS: ENOXAPARIN SODIUM 30 MG/0.3 ML SYRINGE SQ SCH ×3 (01:05→23:38)
[2017-03-03 04:00] VITALS: BP 108/72; PULSE 80; RESP 19; TEMP 97; O2SAT 99
[2017-03-03] MEDS: PROPRANOLOL HCL 20 MG TAB PO SCH ×3 (06:40→22:06)
[2017-03-03] MEDS: FREE WATER G-TUBE SCH ×4 (06:40→23:38)
[2017-03-03 08:11] VITALS: BP 108/64; PULSE 88; RESP 20; TEMP 98; O2SAT 99
[2017-03-03] MEDS: SODIUM CHLORIDE 0.9% FLUSH 5 ML FLUSH IVF SCH ×2 (09:00→22:06)
[2017-03-03] MEDS: GABAPENTIN 100 MG CAP PO SCH ×3 (10:26→18:05)
[2017-03-03] MEDS: FAMOTIDINE 20 MG TAB PO SCH ×2 (10:26→22:06)
[2017-03-03] MEDS: DOCUSATE SODIUM 100 MG CAP PO SCH ×2 (10:26→22:06)
[2017-03-03] MEDS: metFORMIN HCL 500 MG TAB PO SCH ×2 (10:26→18:04)
[2017-03-03] MEDS: ARIPiprazole 5 MG TAB PO SCH (10:26)
[2017-03-03 11:36] VITALS: BP 112/67; PULSE 90; RESP 20; TEMP 96.1; O2SAT 100
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
[2017-03-03] MEDS ORDERED: METH500T3 PO (14:22)
[2017-03-03] MEDS ORDERED: ENOX30P SQ (14:22)
[2017-03-03] MEDS ORDERED: GABA100C4 PO (14:22)
[2017-03-03] MEDS ORDERED: METF500 PO (14:22)
[2017-03-03] MEDS ORDERED: ARIP1TAB11 PO (14:22)
[2017-03-03] MEDS ORDERED: PROP20TA3 PO (14:22)
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
[2017-03-03 20:37] VITALS: BP 87/50; PULSE 89; RESP 17; TEMP 99.1; O2SAT 98
[2017-03-03] MEDS: risperiDONE 1 MG TAB PO SCH (22:06)
[2017-03-04 00:15] VITALS: BP 106/62; PULSE 90; RESP 17; TEMP 98.5; O2SAT 100
[2017-03-04 05:02] VITALS: BP 94/57; PULSE 90; RESP 17; TEMP 97.6; O2SAT 98
[2017-03-04] MEDS: PROPRANOLOL HCL 20 MG TAB PO SCH ×3 (05:42→20:28)
[2017-03-04] MEDS: FREE WATER G-TUBE SCH ×3 (05:42→18:00)
[2017-03-04 08:00] VITALS: BP 108/66; PULSE 91; RESP 19; TEMP 98; O2SAT 97
[2017-03-04] MEDS: DOCUSATE SODIUM 100 MG CAP PO SCH ×2 (08:35→20:28)
[2017-03-04] MEDS: GABAPENTIN 100 MG CAP PO SCH ×3 (08:35→19:03)
[2017-03-04] MEDS: FAMOTIDINE 20 MG TAB PO SCH ×2 (08:35→20:28)
[2017-03-04] MEDS: metFORMIN HCL 500 MG TAB PO SCH ×2 (08:35→19:02)
[2017-03-04] MEDS: ARIPiprazole 5 MG TAB PO SCH (08:35)
[2017-03-04] MEDS: SODIUM CHLORIDE 0.9% FLUSH 5 ML FLUSH IVF SCH ×2 (08:48→20:29)
[2017-03-04 12:00] VITALS: BP 119/71; PULSE 88; RESP 19; TEMP 96.6; O2SAT 96
[2017-03-04] MEDS: ENOXAPARIN SODIUM 30 MG/0.3 ML SYRINGE SQ SCH (13:14)
[2017-03-04] MEDS: NICOTINE 21 MG/24 HR PATCH T-DERMAL SCH (15:47)
[2017-03-04 16:00] VITALS: BP 119/64; PULSE 96; RESP 19; TEMP 97.8; O2SAT 96
[2017-03-04] MEDS: risperiDONE 1 MG TAB PO SCH (20:28)
[2017-03-04] MEDS: ACETAMINOPHEN 650 MG/20.3 ML UDC PO PRN (20:28)
[2017-03-04] MEDS: REMOVE OLD NICODERM (NICOTINE) PATCH T-DERMAL SCH ×2 (20:34→22:40)
[2017-03-04 21:00] VITALS: BP 96/59; PULSE 93; RESP 19; TEMP 97.7; O2SAT 95
[2017-03-05] VITALS: BP 101/66; PULSE 98; RESP 20; TEMP 97.9; O2SAT 96
[2017-03-05] MEDS: ENOXAPARIN SODIUM 30 MG/0.3 ML SYRINGE SQ SCH ×3 (01:07→22:57)
[2017-03-05] MEDS: ACETAMINOPHEN 650 MG/20.3 ML UDC PO PRN (01:51)
[2017-03-05 04:45] VITALS: BP 105/65; PULSE 99; RESP 20; TEMP 97.7; O2SAT 96
[2017-03-05] MEDS: PROPRANOLOL HCL 20 MG TAB PO SCH ×3 (05:28→22:57)
[2017-03-05] MEDS: FREE WATER G-TUBE SCH ×5 (05:28→22:58)
[2017-03-05] MEDS: FAMOTIDINE 20 MG TAB PO SCH ×2 (07:47→20:12)
[2017-03-05] MEDS: ARIPiprazole 5 MG TAB PO SCH (07:47)
[2017-03-05] MEDS: metFORMIN HCL 500 MG TAB PO SCH ×2 (07:47→18:18)
[2017-03-05] MEDS: NICOTINE 21 MG/24 HR PATCH T-DERMAL SCH (07:47)
[2017-03-05] MEDS: GABAPENTIN 100 MG CAP PO SCH ×3 (07:48→18:18)
[2017-03-05] MEDS: DOCUSATE SODIUM 100 MG CAP PO SCH ×2 (07:48→20:12)
[2017-03-05] MEDS: SODIUM CHLORIDE 0.9% FLUSH 5 ML FLUSH IVF SCH ×2 (07:48→20:12)
[2017-03-05 08:00] VITALS: BP 105/63; PULSE 104; RESP 19; TEMP 96.5; O2SAT 98
[2017-03-05 12:00] VITALS: BP 103/62; PULSE 98; RESP 19; TEMP 96.6; O2SAT 98
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
[2017-03-05] MEDS ORDERED: ZOLPIDEM TARTRATE 10 MG TAB PO PRN (14:30)
[2017-03-05 16:00] VITALS: BP 101/65; PULSE 106; RESP 19; TEMP 97.6; O2SAT 97
[2017-03-05] MEDS: risperiDONE 1 MG TAB PO SCH (20:12)
[2017-03-06] MEDS: ACETAMINOPHEN 650 MG/20.3 ML UDC PO PRN ×2 (01:19→11:05)
[2017-03-06] MEDS: PROPRANOLOL HCL 20 MG TAB PO SCH ×2 (05:17→14:26)
[2017-03-06] MEDS: NICOTINE 21 MG/24 HR PATCH T-DERMAL SCH (05:17)
[2017-03-06] MEDS: FREE WATER G-TUBE SCH ×2 (05:17→11:04)
[2017-03-06 08:00] VITALS: BP 97/61; PULSE 83; RESP 16; TEMP 97.9; O2SAT 100
[2017-03-06] MEDS: DOCUSATE SODIUM 100 MG CAP PO SCH (08:58)
[2017-03-06] MEDS: metFORMIN HCL 500 MG TAB PO SCH (08:58)
[2017-03-06] MEDS: ARIPiprazole 5 MG TAB PO SCH (08:58)
[2017-03-06] MEDS: GABAPENTIN 100 MG CAP PO SCH ×2 (08:58→12:35)
[2017-03-06] MEDS: FAMOTIDINE 20 MG TAB PO SCH (08:58)
[2017-03-06] MEDS: SODIUM CHLORIDE 0.9% FLUSH 5 ML FLUSH IVF SCH (09:00)
[2017-03-06 12:00] VITALS: BP 108/68; PULSE 95; RESP 16; TEMP 97.3; O2SAT 100
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
[2017-03-06] MEDS ORDERED: SUMAtriptan SUCCINATE 25 MG TAB PO PRN (12:30)
[2017-03-06] MEDS: ENOXAPARIN SODIUM 30 MG/0.3 ML SYRINGE SQ SCH (12:36)
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
[2017-03-06 16:00] VITALS: BP 92/57; PULSE 82; RESP 16; TEMP 96.9; O2SAT 98
[2017-03-06] MEDS ORDERED: traZODone HCL 50 MG TAB PO SCH (21:00)
[2017-03-16] MEDS ORDERED: COMMODE 3-IN-11 MIS (15:49)
[2017-03-16] MEDS ORDERED: GETGO ROLLING W1 MI1 (15:49)
[2017-03-16] MEDS ORDERED: TRANSPORT CHAIR1 MIS (16:03)
[2017-03-20] MEDS ORDERED: GABA100C4 PO (14:31)
[2017-03-20] MEDS ORDERED: METF500 PO (14:31)
[2017-03-20] MEDS ORDERED: ARIP1TAB11 PO (14:31)
[2017-03-20] MEDS ORDERED: THERTAB15 PO (14:31)
[2017-03-20] MEDS ORDERED: VITA100T2 PO (14:31)
[2017-03-20] MEDS ORDERED: HYDR-3516 PO (14:31)
[2017-03-20] MEDS ORDERED: RISP2TAB2 PO (14:31)
[2017-05-05] MEDS ORDERED: GABA100C4 PO (14:49)
[2017-05-05] MEDS ORDERED: RISP2TAB2 PO (14:49)
== END 2017-03-06 17:28 | DRG 963 ==
LOC: NEPI 00:22 → N03B 00:47 → EDBD 00:47 → MERGE 00:47 → UNDOADMIN 01:09 → N03B 01:09 → N05B 02-14 15:04
PROVIDERS: ADMIT Surgery; ATTEND Surgery
PROC: 5A1955Z Respiratory Ventilation, Greater than 96 Consecutive Hours (ICD-10-PCS; principal; 2017-02-05)
PROC: 0BH17EZ Insertion of Endotracheal Airway into Trachea, Via Natural or Artificial Opening (ICD-10-PCS; 2017-02-05)
PROC: 0D9670Z Drainage of Stomach with Drainage Device, Via Natural or Artificial Opening (ICD-10-PCS; 2017-02-05)
PROC: 0HQ0XZZ Repair Scalp Skin, External Approach (ICD-10-PCS; 2017-02-05)
PROC: 05H533Z Insertion of Infusion Device into Right Subclavian Vein, Percutaneous Approach (ICD-10-PCS; 2017-02-05)
PROC: 0BH17EZ Insertion of Endotracheal Airway into Trachea, Via Natural or Artificial Opening (ICD-10-PCS; 2017-02-10)
PROC: 5A1945Z Respiratory Ventilation, 24-96 Consecutive Hours (ICD-10-PCS; 2017-02-10)
PROC: 30230N1 Transfusion of Nonautologous Red Blood Cells into Peripheral Vein, Open Approach (ICD-10-PCS; 2017-02-11)
PROC: 05H633Z Insertion of Infusion Device into Left Subclavian Vein, Percutaneous Approach (ICD-10-PCS; 2017-02-11)
PROC: 0T9B70Z Drainage of Bladder with Drainage Device, Via Natural or Artificial Opening (ICD-10-PCS; 2017-02-12)
PROC: 0T9B70Z Drainage of Bladder with Drainage Device, Via Natural or Artificial Opening (ICD-10-PCS; 2017-02-16)
PROC: 0DJ08ZZ Inspection of Upper Intestinal Tract, Via Natural or Artificial Opening Endoscopic (ICD-10-PCS; 2017-02-17)
PROC: 0DH63UZ Insertion of Feeding Device into Stomach, Percutaneous Approach (ICD-10-PCS; 2017-02-17 13:55)
DX: S06.5X9A Traumatic subdural hemorrhage with loss of consciousness of unspecified duration, initial encounter (principal); J96.01 Acute respiratory failure with hypoxia; S72.409A Unspecified fracture of lower end of unspecified femur, initial encounter for closed fracture; S06.6X9A Traumatic subarachnoid hemorrhage with loss of consciousness of unspecified duration, initial encounter; I21.4 Non-ST elevation (NSTEMI) myocardial infarction; G93.40 Encephalopathy, unspecified; R13.12 Dysphagia, oropharyngeal phase; I50.20 Unspecified systolic (congestive) heart failure; T17.918A Gastric contents in respiratory tract, part unspecified causing other injury, initial encounter; S32.029A Unspecified fracture of second lumbar vertebra, initial encounter for closed fracture; E87.2 Acidosis; I42.9 Cardiomyopathy, unspecified; F01.51 Vascular dementia, unspecified severity, with behavioral disturbance; N28.0 Ischemia and infarction of kidney; F20.0 Paranoid schizophrenia; N39.0 Urinary tract infection, site not specified; S32.059A Unspecified fracture of fifth lumbar vertebra, initial encounter for closed fracture; S22.32XA Fracture of one rib, left side, initial encounter for closed fracture; D69.6 Thrombocytopenia, unspecified; S82.832A Other fracture of upper and lower end of left fibula, initial encounter for closed fracture; F10.129 Alcohol abuse with intoxication, unspecified; S01.01XA Laceration without foreign body of scalp, initial encounter; S60.511A Abrasion of right hand, initial encounter; S00.81XA Abrasion of other part of head, initial encounter; S60.512A Abrasion of left hand, initial encounter; R00.0 Tachycardia, unspecified; Y92.410 Unspecified street and highway as the place of occurrence of the external cause; I44.7 Left bundle-branch block, unspecified; M25.462 Effusion, left knee; M23.92 Unspecified internal derangement of left knee; Y93.01 Activity, walking, marching and hiking; Y99.9 Unspecified external cause status; V03.10XA Pedestrian on foot injured in collision with car, pick-up truck or van in traffic accident, initial encounter; K44.9 Diaphragmatic hernia without obstruction or gangrene; E87.6 Hypokalemia; E83.39 Other disorders of phosphorus metabolism; S06.2X9A Diffuse traumatic brain injury with loss of consciousness of unspecified duration, initial encounter; J32.2 Chronic ethmoidal sinusitis; K59.00 Constipation, unspecified; E88.09 Other disorders of plasma-protein metabolism, not elsewhere classified; X58.XXXA Exposure to other specified factors, initial encounter; Y93.89 Activity, other specified; Y92.239 Unspecified place in hospital as the place of occurrence of the external cause; D53.9 Nutritional anemia, unspecified; I10 Essential (primary) hypertension; M51.27 Other intervertebral disc displacement, lumbosacral region; Z78.1 Physical restraint status; M51.26 Other intervertebral disc displacement, lumbar region; G47.00 Insomnia, unspecified; R19.7 Diarrhea, unspecified
CPT/HCPCS: 31500; 36430; 36556; 36600; 36620; 70450; 70486; 70496; 70498; 71010; 71260; 72125; 72128; 72131; 72170; 73130; 73590; 73600; 74000; 74177; 76937; 80048; 80053; 80076; 80164; 80202; 80307; 81001; 82435; 82550; 82552; 82565; 82805; 82947; 82948; 83036; 83735; 84100; 84132; 84155; 84295; 84484; 84520; 85007; 85014; 85018; 85025; 85027; 85610; 85730; 86850; 86900; 86901; 86920; 87040; 87070; 87086; 87205; 87493; 87641; 90471; 93005; 93306; 94002; 94003; 94640; 94664; 94667; 95819; 96374; 99291; C9113; C9399; G0390; J0131; J0330; J0690; J1650; J1885; J1940; J1953; J2212; J2250; J2543; J2765; J3010; J3370; J3411; J3480; J7030; J7040; J7050; J7120; L0172; P9016; Q9967